=== PATIENT | female | born 1940 | race Caucasian/White ===

== ENCOUNTER → 2016-12-10 | Outpatient (CLI) | payer MEDICARE, OTHER ==
[2016-12-10 12:04] LABS: Basophils # (auto) 0 uL; Basophils % (auto) 0.2 % (0.0-2.0); Eosinophils # (auto) 0.4 uL; Eosinophils % (auto) 4.7 % (0.0-7.0); Hematocrit 47.7 % (36.0-46.0); Hemoglobin 15.5 g/dL (12.2-16.2); Lymphocytes # (auto) 1.1 uL; Lymphocytes % (auto) 13.6 % (10.0-50.0); Mean Corpuscular Hemoglobin 28.1 pg (28.0-32.0); Mean Corpuscular Hgb Conc. 32.5 g/dL (32.0-36.0); Mean Corpuscular Volume 86.3 fL (80.0-100.0); Mean Platelet Volume 7.1 fL (7.4-10.4); Monocytes # (auto) 0.6 uL; Monocytes % (auto) 7.9 % (0.0-12.0); Neutrophils % (auto) 73.6 % (37.0-80.0); Platelet Count (auto) 317 10^3/uL (140-450); Red Cell Distribution Width 14.3 % (11.6-16.0); White Blood Cell 8.2 10^3/uL (4.4-10.8)
[2016-12-10 12:10] LABS: Urine Bilirubin Negative (Negative); Urine Blood Negative /uL (Negative); Urine Color Yellow (Yellow); Urine Glucose Normal (Normal); Urine Ketone Negative (Negative); Urine Nitrite Negative (Negative); Urine Urobilinogen Normal (Negative); Urine pH 6.5 (5.0-8.0)
[2016-12-10 12:37] LABS: Albumin 4.2 g/dL (3.4-5.0); BUN/Creatinine Ratio 16.1; Bilirubin, Direct 0.2 mg/dL (0-0.2); Bilirubin, Total 0.6 mg/dL (0.2-1.0); Calcium 9.9 mg/dL (8.5-10.1); Potassium 4.1 mmol/L (3.5-5.1); Total Protein 7.5 g/dL (6.4-8.2)
== END | disposition home or self-care (01) ==
LOC: LAB 09:41
PROVIDERS: ATTEND Internal Medicine Cardiovascular Disease
DX: I10 Essential (primary) hypertension (principal); E78.00 Pure hypercholesterolemia, unspecified; K74.1 Hepatic sclerosis; E11.9 Type 2 diabetes mellitus without complications; E03.9 Hypothyroidism, unspecified; D64.9 Anemia, unspecified; E55.9 Vitamin D deficiency, unspecified; N39.0 Urinary tract infection, site not specified
CPT/HCPCS: 36415; 80048; 80061; 80076; 81003; 82306; 83036; 84443; 85025

== ENCOUNTER → 2017-03-24 | Outpatient (CLI) | payer MEDICARE | END | disposition home or self-care (01) | LOC: Rad HDHVI 09:30 | PROVIDERS: ATTEND Internal Medicine Cardiovascular Disease | DX: I51.89 Other ill-defined heart diseases (principal); I20.9 Angina pectoris, unspecified; I27.0 Primary pulmonary hypertension | CPT/HCPCS: 93306 ==

== ENCOUNTER → 2017-04-20 | Outpatient (CLI) | payer MEDICARE ==
[2017-04-20 08:40] VITALS: BP 119/60
[2017-04-20 09:15] VITALS: BP 111/58
[2017-04-20 12:16] LABS: Basophils # (auto) 0 uL; Basophils % (auto) 0.6 % (0.0-2.0); CONDITION Y; Eosinophils # (auto) 0.4 uL; Eosinophils % (auto) 6.6 % (0.0-7.0); Hematocrit 44.5 % (36.0-46.0); Hemoglobin 14.9 g/dL (12.2-16.2); Lymphocytes % (auto) 17.1 % (10.0-50.0); Mean Corpuscular Hemoglobin 28.7 pg (28.0-32.0); Mean Corpuscular Hgb Conc. 33.4 g/dL (32.0-36.0); Mean Corpuscular Volume 85.9 fL (80.0-100.0); Mean Platelet Volume 7.4 fL (7.4-10.4); Monocytes # (auto) 0.5 uL; Monocytes % (auto) 8.6 % (0.0-12.0); Neutrophils # (auto) 4.1 uL; Neutrophils % (auto) 67.1 % (37.0-80.0); Platelet Count (auto) 320 10^3/uL (140-450); Red Cell Distribution Width 14.1 % (11.6-16.0); White Blood Cell 6.1 10^3/uL (4.4-10.8)
[2017-04-20 12:25] LABS: INR 0.96 (0.9-1.15); Partial Thromboplastin Time 26.4 sec (22.64-33.71); Prothrombin Time 10.5 sec (9.37-12.3)
[2017-04-20 12:43] LABS: BUN/Creatinine Ratio 23.9; Calcium 10.1 mg/dL (8.5-10.1); Potassium 3.8 mmol/L (3.5-5.1)
== END | disposition home or self-care (01) ==
LOC: Rad HDHVI 08:22
PROVIDERS: ATTEND Internal Medicine Cardiovascular Disease
DX: Z01.812 Encounter for preprocedural laboratory examination (principal); I51.7 Cardiomegaly; I70.0 Atherosclerosis of aorta; R91.8 Other nonspecific abnormal finding of lung field; K44.9 Diaphragmatic hernia without obstruction or gangrene; M85.80 Other specified disorders of bone density and structure, unspecified site; M40.294 Other kyphosis, thoracic region; M48.54XA Collapsed vertebra, not elsewhere classified, thoracic region, initial encounter for fracture; I10 Essential (primary) hypertension; D64.9 Anemia, unspecified; R79.1 Abnormal coagulation profile
CPT/HCPCS: 36415; 71020; 80048; 85025; 85610; 85730; 93005; G0463

== ENCOUNTER 2017-05-11 02:41 | Emergency (ER) | payer MEDICARE ==
[~2017-05-11] VITALS: Ht 157.5 cm; Wt 57.2 kg
[~2017-05-11 02:41] MED LIST: AML5T PO; ATEN-60 PO; FLUT250M2 INH; HYDR12.56 PO; IPRASOL39 NEB; LISI2.5T47 PO; TIOTCAP INH
[2017-05-11 03:13] LABS: Basophils # (auto) 0 uL; Basophils % (auto) 0.4 % (0.0-2.0); CONDITION Y; Eosinophils # (auto) 0.3 uL; Eosinophils % (auto) 2.7 % (0.0-7.0); Hematocrit 45.3 % (36.0-46.0); Hemoglobin 15.2 g/dL (12.2-16.2); Lymphocytes # (auto) 1.7 uL; Lymphocytes % (auto) 17.9 % (10.0-50.0); Mean Corpuscular Hemoglobin 28.7 pg (28.0-32.0); Mean Corpuscular Hgb Conc. 33.5 g/dL (32.0-36.0); Mean Corpuscular Volume 85.8 fL (80.0-100.0); Mean Platelet Volume 6.6 fL (7.4-10.4); Monocytes # (auto) 0.9 uL; Monocytes % (auto) 9.9 % (0.0-12.0); Neutrophils # (auto) 6.4 uL; Neutrophils % (auto) 69.1 % (37.0-80.0); Platelet Count (auto) 411 10^3/uL (140-450); Red Cell Distribution Width 13.6 % (11.6-16.0); White Blood Cell 9.3 10^3/uL (4.4-10.8)
[2017-05-11 03:34] LABS: Albumin 3.7 g/dL (3.4-5.0); BUN/Creatinine Ratio 25.3; Calcium 9.4 mg/dL (8.5-10.1); Magnesium 2.2 mg/dL (1.6-2.6); Potassium 3.6 mmol/L (3.5-5.1)
[2017-05-11 03:39] LABS: Bilirubin, Total 0.6 mg/dL (0.2-1.0); Temperature: 22.4 C (20.0-25.0); Total Protein 7.7 g/dL (6.4-8.2)
[2017-05-11 05:27] VITALS: BP 124/72
== END 2017-05-11 06:50 | disposition home or self-care (01) ==
LOC: ER 02:44
DX: M54.2 Cervicalgia (principal); I25.10 Atherosclerotic heart disease of native coronary artery without angina pectoris; I10 Essential (primary) hypertension; Z95.5 Presence of coronary angioplasty implant and graft; Z88.6 Allergy status to analgesic agent; Z95.1 Presence of aortocoronary bypass graft; Z96.643 Presence of artificial hip joint, bilateral; Z90.49 Acquired absence of other specified parts of digestive tract; Z90.89 Acquired absence of other organs
CPT/HCPCS: 36415; 71010; 80053; 83735; 83880; 84484; 85025; 93005

== ENCOUNTER → 2017-09-16 | Outpatient (CLI) | payer MEDICARE ==
[2017-09-16 16:32] LABS: Calcium 9.4 mg/dL (8.5-10.1); Potassium 4.1 mmol/L (3.5-5.1)
[2017-09-16 16:43] LABS: Basophils # (auto) 0 uL; Basophils % (auto) 0.2 % (0.0-2.0); Eosinophils # (auto) 0 uL; Eosinophils % (auto) 0.2 % (0.0-7.0); Hematocrit 45.7 % (36.0-46.0); Lymphocytes # (auto) 0.5 uL; Lymphocytes % (auto) 8.2 % (10.0-50.0); Mean Corpuscular Hemoglobin 28.6 pg (28.0-32.0); Mean Corpuscular Volume 86.8 fL (80.0-100.0); Mean Platelet Volume 6.9 fL (6.9-10.8); Monocytes % (auto) 14.6 % (0.0-12.0); Neutrophils # (auto) 5.1 uL; Neutrophils % (auto) 76.8 % (37.0-80.0); Nucleated Red Blood Cells % 0.7 %; Platelet Count (auto) 211 10^3/uL (140-450); Red Cell Distribution Width 13.7 % (11.8-14.3); White Blood Cell 6.6 10^3/uL (4.4-10.8)
== END | disposition home or self-care (01) ==
LOC: Rad HDHVI 13:38
PROVIDERS: ATTEND Internal Medicine Cardiovascular Disease
DX: I70.0 Atherosclerosis of aorta (principal); M85.80 Other specified disorders of bone density and structure, unspecified site; K44.9 Diaphragmatic hernia without obstruction or gangrene; M40.299 Other kyphosis, site unspecified; D64.9 Anemia, unspecified; I10 Essential (primary) hypertension
CPT/HCPCS: 36415; 71020; 80048; 85025

== ENCOUNTER → 2017-10-12 | Outpatient (CLI) | payer MEDICARE | END | disposition home or self-care (01) | LOC: LAB 11:45 | PROVIDERS: ATTEND Internal Medicine Cardiovascular Disease | DX: E03.9 Hypothyroidism, unspecified (principal) | CPT/HCPCS: 36415; 84443 ==

== ENCOUNTER → 2017-10-28 | Outpatient (CLI) | payer MEDICARE | END | disposition home or self-care (01) | LOC: Rad HDHVI 15:07 | PROVIDERS: ATTEND Internal Medicine Cardiovascular Disease | DX: I08.1 Rheumatic disorders of both mitral and tricuspid valves (principal); J44.9 Chronic obstructive pulmonary disease, unspecified | CPT/HCPCS: 93306 ==

== ENCOUNTER → 2017-11-11 | Outpatient (CLI) | payer MEDICARE ==
[~2017-11-11] VITALS: Ht 157.5 cm; Wt 55.8 kg
[~2017-11-11] MED LIST changes: +ADENOSINE 47 MG in GIVE UN-DILUTED 0 ML IV ONE; +ADENOSINE 90 MG/30 ML INJ IV ONE
== END | disposition home or self-care (01) ==
LOC: Rad HDHVI 10:09
PROVIDERS: ATTEND Internal Medicine Cardiovascular Disease
DX: J44.9 Chronic obstructive pulmonary disease, unspecified (principal); I10 Essential (primary) hypertension; I25.119 Atherosclerotic heart disease of native coronary artery with unspecified angina pectoris
CPT/HCPCS: 78452; 93005; 96374; 96375; A9500; J0153

== ENCOUNTER 2017-12-04 16:40 | Inpatient (IN) | payer MEDICARE ==
[~2017-12-04] VITALS: Ht 157.5 cm; Wt 57.2 kg
[~2017-12-04 16:40] MED LIST changes: -ADENOSINE 47 MG in GIVE UN-DILUTED 0 ML IV ONE; -ADENOSINE 90 MG/30 ML INJ IV ONE
[2017-12-04 17:32] LABS: Basophils # (auto) 0 uL; Basophils % (auto) 0.2 % (0.0-2.0); Eosinophils # (auto) 0 uL; Eosinophils % (auto) 0.4 % (0.0-7.0); Hematocrit 48.7 % (36.0-46.0); Hemoglobin 15.6 g/dL (12.2-16.2); Lymphocytes # (auto) 0.7 uL; Lymphocytes % (auto) 6.2 % (10.0-50.0); Mean Corpuscular Hemoglobin 28.5 pg (28.0-32.0); Mean Corpuscular Volume 89.1 fL (80.0-100.0); Monocytes # (auto) 0.8 uL; Monocytes % (auto) 6.6 % (0.0-12.0); Neutrophils # (auto) 10.3 uL; Neutrophils % (auto) 86.6 % (37.0-80.0); Nucleated Red Blood Cells % 0.1 %; Platelet Count (auto) 250 10^3/uL (140-450); Red Blood Cells 5.47 10^6/uL (4.0-5.20); Red Cell Distribution Width 14.5 % (11.8-14.3); White Blood Cell 11.9 10^3/uL (4.4-10.8)
[2017-12-04 17:39] LABS: Alanine Aminotransferase 35 U/L (13-56); Albumin 3.8 g/dL (3.4-5.0); Anion Gap 8 (5-15); Aspartate Aminotransferase 28 U/L (15-37); Blood Urea Nitrogen 22 mg/dL (7-18); Calcium 9.5 mg/dL (8.5-10.1); Carbon Dioxide 24 mmol/L (21-32); Chloride 103 mmol/L (98-107); GFR African American 81 mL/min; GFR Non-African American 67 mL/min; Glucose 110 mg/dL (74-106); Potassium 3.9 mmol/L (3.5-5.1); Sodium 135 mmol/L (136-145)
[2017-12-04 17:41] LABS: Alkaline Phosphatase 49 U/L (45-117); Bilirubin, Total 0.6 mg/dL (0.2-1.0); Total Protein 7.4 g/dL (6.4-8.2)
[2017-12-05] VITALS (8 sets, daily range): BP systolic 100–115; BP diastolic 50–77
[2017-12-05] MEDS ORDERED: MORPHINE SULFATE 4 MG/ML SYR/VIAL IV ONE (01:00)
[2017-12-05] MEDS ORDERED: ONDANSETRON HCL 4 MG/2 ML VIAL IV ONE (01:00)
[2017-12-05] MEDS ORDERED: ASPirin 81 mg TAB PO ONE (01:00)
[2017-12-05] MEDS ORDERED: ONDANSETRON HCL 4 MG/2 ML VIAL IV PRN (02:45)
[2017-12-05] MEDS ORDERED: MORPHINE SULFATE 4 MG/ML SYR/VIAL IV PRN (02:45)
[2017-12-05] MEDS ORDERED: ACETAMINOPHEN 325 MG TAB PO PRN (02:45)
[2017-12-05] MEDS ORDERED: NITROGLYCERIN 0.4 MG SL TAB SL PRN (02:45)
[2017-12-05] MEDS ORDERED: HYDROcodone-ACET 5/325MG TAB PO PRN (02:45)
[2017-12-05] MEDS ORDERED: TEMAZEPAM 15 MG CAP PO PRN (02:45)
[2017-12-05] MEDS: ASPirin 81 mg TAB PO SCH (10:15)
[2017-12-05] MEDS: amLODIPine BESYLATE 5 MG TAB PO SCH (10:15)
[2017-12-05] MEDS: FAMOTIDINE 20 MG TAB PO SCH ×2 (10:17→22:04)
[2017-12-05] MEDS: LISINOPRIL 5 MG TAB PO SCH (10:17)
[2017-12-05] MEDS: HCTZ 25 MG TAB PO SCH (10:18)
[2017-12-05] MEDS: ENOXAPARIN SOD 40 MG/0.4 ML SYRINGE SC SCH (10:19)
[2017-12-05] MEDS: ALBUTEROL SULF 2.5 MG/0.5ML(0.5%) NEB SOLN NEB PRN (19:47)
[2017-12-06] VITALS (7 sets, daily range): BP systolic 96–111; BP diastolic 59–69
[2017-12-06 05:51] LABS: Basophils # (auto) 0 uL; Basophils % (auto) 0.3 % (0.0-2.0); Eosinophils # (auto) 0.1 uL; Eosinophils % (auto) 0.9 % (0.0-7.0); Hematocrit 44.3 % (36.0-46.0); Hemoglobin 14.6 g/dL (12.2-16.2); Lymphocytes # (auto) 0.8 uL; Lymphocytes % (auto) 10.5 % (10.0-50.0); Mean Corpuscular Hemoglobin 28.7 pg (28.0-32.0); Mean Corpuscular Hgb Conc. 33.1 g/dL (32.0-36.0); Mean Corpuscular Volume 86.8 fL (80.0-100.0); Monocytes # (auto) 0.6 uL; Monocytes % (auto) 7.5 % (0.0-12.0); Neutrophils % (auto) 80.8 % (37.0-80.0); Nucleated Red Blood Cells % 0.1 %; Platelet Count (auto) 256 10^3/uL (140-450); White Blood Cell 7.4 10^3/uL (4.4-10.8)
[2017-12-06] MEDS ORDERED: IOHEXOL 350 MG/ML 100ML IJ ONE (05:55)
[2017-12-06 06:06] LABS: Albumin 3.3 g/dL (3.4-5.0); BUN/Creatinine Ratio 28.2; Bilirubin, Total 0.6 mg/dL (0.2-1.0); Calcium 9.2 mg/dL (8.5-10.1); Potassium 4.2 mmol/L (3.5-5.1); Total Protein 6.5 g/dL (6.4-8.2)
[2017-12-06] MEDS: ENOXAPARIN SOD 40 MG/0.4 ML SYRINGE SC SCH (11:01)
[2017-12-06] MEDS: LISINOPRIL 5 MG TAB PO SCH (11:02)
[2017-12-06] MEDS: amLODIPine BESYLATE 5 MG TAB PO SCH (11:03)
[2017-12-06] MEDS: FAMOTIDINE 20 MG TAB PO SCH ×2 (11:03→21:58)
[2017-12-06] MEDS: ASPirin 81 mg TAB PO SCH (11:04)
[2017-12-06] MEDS: HCTZ 25 MG TAB PO SCH (11:04)
[2017-12-06] MEDS: ALBUTEROL SULF 2.5 MG/0.5ML(0.5%) NEB SOLN NEB PRN (20:28)
[2017-12-07 05:00] VITALS: BP 112/66
[2017-12-07] MEDS: FAMOTIDINE 20 MG TAB PO SCH (08:49)
[2017-12-07] MEDS: HCTZ 25 MG TAB PO SCH (08:49)
[2017-12-07] MEDS: ENOXAPARIN SOD 40 MG/0.4 ML SYRINGE SC SCH (08:49)
[2017-12-07] MEDS: ASPirin 81 mg TAB PO SCH (08:49)
[2017-12-07 09:00] VITALS: BP 115/65
[2017-12-07] MEDS: LISINOPRIL 5 MG TAB PO SCH (10:00)
[2017-12-07] MEDS: amLODIPine BESYLATE 5 MG TAB PO SCH (10:00)
[2017-12-07 12:43] VITALS: BP 112/65
[2017-12-07 13:00] VITALS: BP 101/61
[2017-12-07] MEDS: ALBUTEROL SULF 2.5 MG/0.5ML(0.5%) NEB SOLN NEB PRN (14:24)
== END 2017-12-07 15:50 | disposition home or self-care (01) | DRG 206 ==
LOC: ER 16:54 → TELE 16:55 → TELE-WESTW 12-05 04:30
PROVIDERS: ADMIT Nurse Practitioner; ATTEND Family Medicine
DX: M94.0 Chondrocostal junction syndrome [Tietze] (principal); I11.0 Hypertensive heart disease with heart failure; J44.9 Chronic obstructive pulmonary disease, unspecified; I50.9 Heart failure, unspecified; I25.10 Atherosclerotic heart disease of native coronary artery without angina pectoris; K44.9 Diaphragmatic hernia without obstruction or gangrene; I08.0 Rheumatic disorders of both mitral and aortic valves; Z82.49 Family history of ischemic heart disease and other diseases of the circulatory system; Z95.1 Presence of aortocoronary bypass graft; Z95.5 Presence of coronary angioplasty implant and graft; Z79.899 Other long term (current) drug therapy; Z88.8 Allergy status to other drugs, medicaments and biological substances; Z90.49 Acquired absence of other specified parts of digestive tract
CPT/HCPCS: 36415; 71046; 71275; 80053; 84484; 85025; 85379; 93005; 94640; 94761; 96374; 96375; J2405

== ENCOUNTER → 2017-12-09 | Outpatient (CLI) | payer MEDICARE ==
[~2017-12-09] VITALS: Ht 1 cm; Wt 0.5 kg
[~2017-12-09] MED LIST changes: +KETOROLAC TROMETH 60MG/2ML VIAL IM ONE
[2017-12-09 15:40] VITALS: BP 152/65
[2017-12-09 16:20] VITALS: BP 111/59
== END | disposition home or self-care (01) ==
LOC: CHF HDHVI 15:40
PROVIDERS: ATTEND Internal Medicine Cardiovascular Disease
DX: M54.5 Low back pain (principal); R10.30 Lower abdominal pain, unspecified
CPT/HCPCS: 96372; G0463; J1885

== ENCOUNTER → 2017-12-10 | Outpatient (CLI) | payer MEDICARE ==
[~2017-12-10] MED LIST changes: -KETOROLAC TROMETH 60MG/2ML VIAL IM ONE; +READI-CAT 2 (BARIUM SULF)(VANILLA SMOOTHIE) 450ML ONE
== END | disposition home or self-care (01) ==
LOC: Rad HDHVI 11:53
PROVIDERS: ATTEND Internal Medicine Cardiovascular Disease
DX: K44.9 Diaphragmatic hernia without obstruction or gangrene (principal); I70.0 Atherosclerosis of aorta; M54.5 Low back pain; M48.061 Spinal stenosis, lumbar region without neurogenic claudication; Z90.49 Acquired absence of other specified parts of digestive tract
CPT/HCPCS: 72131; 74176

== ENCOUNTER → 2017-12-20 | Outpatient (CLI) | payer MEDICARE ==
[~2017-12-20] MED LIST changes: +IOHEXOL 350 MG/ML 100ML IJ ONE
== END | disposition home or self-care (01) ==
LOC: Rad HDHVI 09:05
PROVIDERS: ATTEND Internal Medicine Cardiovascular Disease
DX: K44.9 Diaphragmatic hernia without obstruction or gangrene (principal); K42.9 Umbilical hernia without obstruction or gangrene; I70.0 Atherosclerosis of aorta; Z90.49 Acquired absence of other specified parts of digestive tract
CPT/HCPCS: 74176

== ENCOUNTER → 2017-12-28 | Outpatient (CLI) | payer MEDICARE ==
[~2017-12-28] MED LIST changes: -IOHEXOL 350 MG/ML 100ML IJ ONE; -READI-CAT 2 (BARIUM SULF)(VANILLA SMOOTHIE) 450ML ONE
== END | disposition home or self-care (01) ==
LOC: Rad HDHVI 12:58
PROVIDERS: ATTEND Internal Medicine
DX: J44.9 Chronic obstructive pulmonary disease, unspecified (principal); R60.9 Edema, unspecified; I10 Essential (primary) hypertension; E78.5 Hyperlipidemia, unspecified; E11.9 Type 2 diabetes mellitus without complications; Z79.899 Other long term (current) drug therapy
CPT/HCPCS: 93971

== ENCOUNTER → 2018-06-03 | Outpatient (CLI) | payer MEDICARE | END | disposition home or self-care (01) | LOC: Rad HDHVI 14:01 | PROVIDERS: ATTEND Internal Medicine | DX: I08.2 Rheumatic disorders of both aortic and tricuspid valves (principal); I10 Essential (primary) hypertension; J44.9 Chronic obstructive pulmonary disease, unspecified; Z98.61 Coronary angioplasty status; Z87.891 Personal history of nicotine dependence | CPT/HCPCS: 93306 ==

== ENCOUNTER → 2018-06-15 | Outpatient (CLI) | payer MEDICARE ==
[~2018-06-15] VITALS: Ht 30.5 cm; Wt 0.5 kg
[~2018-06-15] MED LIST changes: +ADENOSINE 48 MG in GIVE UN-DILUTED 0 ML IV ONE; +ADENOSINE 90 MG/30 ML INJ IV ONE
== END | disposition home or self-care (01) ==
LOC: Rad HDHVI 13:55
PROVIDERS: ATTEND Internal Medicine
DX: I10 Essential (primary) hypertension (principal); I20.9 Angina pectoris, unspecified; E78.5 Hyperlipidemia, unspecified; R07.89 Other chest pain; J44.9 Chronic obstructive pulmonary disease, unspecified; Z95.5 Presence of coronary angioplasty implant and graft; Z88.6 Allergy status to analgesic agent
CPT/HCPCS: 78452; 93005; 96374; 96375; A9500; J0153

== ENCOUNTER → 2018-07-11 | Outpatient (CLI) | payer MEDICARE ==
[~2018-07-11] MED LIST changes: -ADENOSINE 48 MG in GIVE UN-DILUTED 0 ML IV ONE; -ADENOSINE 90 MG/30 ML INJ IV ONE; +CHOL100055 PO; +CLOP75TA41 PO; +LEVO50TA7 PO; +LUBI24CA6 PO
[2018-07-11 12:15] VITALS: BP 144/69
[2018-07-11 12:48] VITALS: BP 137/80
[2018-07-11 16:21] LABS: Basophils # (auto) 0 uL; Basophils % (auto) 0.5 % (0.0-2.0); Eosinophils # (auto) 0.4 uL; Eosinophils % (auto) 4.2 % (0.0-7.0); Hematocrit 49.3 % (36.0-46.0); Hemoglobin 16.5 g/dL (12.2-16.2); Lymphocytes # (auto) 1.4 uL; Lymphocytes % (auto) 16.8 % (10.0-50.0); Mean Corpuscular Hemoglobin 28.8 pg (28.0-32.0); Mean Corpuscular Hgb Conc. 33.4 g/dL (32.0-36.0); Mean Corpuscular Volume 86.3 fL (80.0-100.0); Monocytes # (auto) 0.7 uL; Monocytes % (auto) 8.3 % (0.0-12.0); Neutrophils # (auto) 5.8 uL; Neutrophils % (auto) 70.2 % (37.0-80.0); Nucleated Red Blood Cells % 0.4 %; Platelet Count (auto) 259 10^3/uL (140-450); Red Blood Cells 5.72 10^6/uL (4.0-5.20); Red Cell Distribution Width 14.4 % (11.8-14.3); White Blood Cell 8.3 10^3/uL (4.4-10.8)
[2018-07-11 16:31] LABS: BUN/Creatinine Ratio 21.7; Potassium 3.7 mmol/L (3.5-5.1)
[2018-07-11 16:33] LABS: INR 0.95 (0.9-1.15); Partial Thromboplastin Time 27.7 sec (23.78-33.04); Prothrombin Time 10.2 sec (9.27-12.13)
== END | disposition home or self-care (01) ==
LOC: CHF HDHVI 12:06
PROVIDERS: ATTEND Internal Medicine
DX: Z01.818 Encounter for other preprocedural examination (principal); D64.9 Anemia, unspecified; R79.1 Abnormal coagulation profile; I10 Essential (primary) hypertension; R94.31 Abnormal electrocardiogram [ECG] [EKG]
CPT/HCPCS: 36415; 80048; 85025; 85610; 85730; 93005; G0463

== ENCOUNTER 2018-07-13 06:43 | Day surgery (SDC) | payer MEDICARE ==
[~2018-07-13] VITALS: Ht 157.5 cm; Wt 57.6 kg
[~2018-07-13 06:43] MED LIST changes: -AML5T PO; -IPRASOL39 NEB; -LISI2.5T47 PO
[2018-07-13] MEDS ORDERED: IOHEXOL 350 MG/ML 100ML IJ ONE (07:25)
[2018-07-13] MEDS ORDERED: LIDOCAINE 2%HCL (LOCAL ANESTH.) INJ 20ML MDV ONE (07:26)
[2018-07-13] MEDS ORDERED: EPINEPHrine HCL 1 MG/10 ML SYRG ONE (08:01)
[2018-07-13] MEDS ORDERED: MIDAZOLAM HCL 1MG/1ML-2 ML VIAL ONE (08:01)
[2018-07-13] MEDS ORDERED: ATROPINE SULF 1 MG/10ml SYR ONE (08:01)
[2018-07-13] MEDS ORDERED: SODIUM CHL 0.9% 0 ML ONE (08:01)
[2018-07-13] MEDS ORDERED: fentaNYL CITRATE 100 MCG/2 ML VL ONE (08:01)
[2018-07-13] MEDS ORDERED: ANGIOMAX 250 MG VIAL IV ONE (08:01)
[2018-07-13] MEDS ORDERED: ACETAMINOPHEN 500 MG TAB PO ONE ×2 (09:55→10:00)
== END 2018-07-13 11:30 | disposition home or self-care (01) ==
LOC: CATH 06:43
PROVIDERS: ATTEND Internal Medicine
DX: I25.119 Atherosclerotic heart disease of native coronary artery with unspecified angina pectoris (principal); R94.39 Abnormal result of other cardiovascular function study; I27.20 Pulmonary hypertension, unspecified; Z88.6 Allergy status to analgesic agent; Z88.8 Allergy status to other drugs, medicaments and biological substances; Q24.9 Congenital malformation of heart, unspecified; J44.9 Chronic obstructive pulmonary disease, unspecified; Z87.891 Personal history of nicotine dependence; Z82.49 Family history of ischemic heart disease and other diseases of the circulatory system; Z84.89 Family history of other specified conditions; I10 Essential (primary) hypertension; Z95.5 Presence of coronary angioplasty implant and graft; Z79.899 Other long term (current) drug therapy; E07.9 Disorder of thyroid, unspecified
CPT/HCPCS: 36600; 82805; 93460; 99152; 99153; A6257; C1751; J2250

== ENCOUNTER → 2018-08-02 | Outpatient (CLI) | payer MEDICARE ==
[2018-08-02 15:10] VITALS: BP 140/84
[2018-08-02 16:00] VITALS: BP 152/81
== END | disposition home or self-care (01) ==
LOC: CHF HDHVI 15:12
PROVIDERS: ATTEND Internal Medicine
DX: I27.21 Secondary pulmonary arterial hypertension (principal); I10 Essential (primary) hypertension; J44.9 Chronic obstructive pulmonary disease, unspecified; E07.9 Disorder of thyroid, unspecified
CPT/HCPCS: 93701; 94618; G0463

== ENCOUNTER → 2018-09-16 | Outpatient (CLI) | payer MEDICARE ==
[2018-09-16 09:08] VITALS: BP 132/66
[2018-09-16 10:20] VITALS: BP 143/73
== END | disposition home or self-care (01) ==
LOC: CHF HDHVI 09:03
PROVIDERS: ATTEND Internal Medicine Cardiovascular Disease
DX: I27.20 Pulmonary hypertension, unspecified (principal); R06.00 Dyspnea, unspecified
CPT/HCPCS: 93701; 94618; G0463

== ENCOUNTER → 2018-09-22 | Outpatient (CLI) | payer MEDICARE ==
[2018-09-22 09:55] VITALS: BP 152/72
[2018-09-22 11:15] VITALS: BP 137/65
[2018-09-22 12:02] LABS: Basophils # (auto) 0 uL; Basophils % (auto) 0.3 % (0.0-2.0); Eosinophils # (auto) 0.2 uL; Eosinophils % (auto) 3.3 % (0.0-7.0); Hematocrit 50.5 % (36.0-46.0); Hemoglobin 16.4 g/dL (12.2-16.2); Lymphocytes # (auto) 1.1 uL; Lymphocytes % (auto) 15.3 % (10.0-50.0); Mean Corpuscular Hemoglobin 28.6 pg (28.0-32.0); Mean Corpuscular Hgb Conc. 32.5 g/dL (32.0-36.0); Monocytes # (auto) 0.6 uL; Monocytes % (auto) 7.5 % (0.0-12.0); Neutrophils # (auto) 5.4 uL; Neutrophils % (auto) 73.6 % (37.0-80.0); Nucleated Red Blood Cells % 0.1 %; Platelet Count (auto) 241 10^3/uL (140-450); Red Blood Cells 5.74 10^6/uL (4.0-5.20); Red Cell Distribution Width 14.4 % (11.8-14.3); White Blood Cell 7.3 10^3/uL (4.4-10.8)
[2018-09-22 12:11] LABS: Albumin 3.9 g/dL (3.4-5.0); Calcium 9.5 mg/dL (8.5-10.1); Magnesium 2.3 mg/dL (1.6-2.6); Potassium 3.6 mmol/L (3.5-5.1)
[2018-09-22 12:16] LABS: Bilirubin, Total 0.5 mg/dL (0.2-1.0); Total Protein 7.3 g/dL (6.4-8.2)
== END | disposition home or self-care (01) ==
LOC: CHF HDHVI 09:11
PROVIDERS: ATTEND Internal Medicine Cardiovascular Disease
DX: I11.0 Hypertensive heart disease with heart failure (principal); I50.9 Heart failure, unspecified; E55.9 Vitamin D deficiency, unspecified; D64.9 Anemia, unspecified; I27.21 Secondary pulmonary arterial hypertension; R06.00 Dyspnea, unspecified
CPT/HCPCS: 36415; 80053; 82306; 83735; 85025; G0463

== ENCOUNTER → 2018-10-06 | Outpatient (CLI) | payer MEDICARE ==
[2018-10-06 09:15] VITALS: BP 139/65
[2018-10-06 09:45] VITALS: BP 147/60
--- NOTE | 2018-10-06 10:00 | NUR ---
IN TO CLINIC FOR PAH FOLLOWUP. NO DISTRESS OR DISCOMFORT NOTED. CARDIODYNAMICS DONE AND REVIEWED BY DAVID GARIBAY. DISCREPANCY FROM LAST NOTED CARDIODYNAMICS. UPON FURTHER DISCUSSION PT REPORTS FATIGUE AND NOT FEELING WELL X MULTIPLE DAYS. PLAN TO REEVALUATE CARDIODYNAMICS IN 1 WEEK. 6MWT DONE AND REVIEWED. PT TO START ON ARGINEXT SUPPLEMENT ORALLY BID. Discharge Instructions See e-MAR for any mediations given with this visit. Patient education given on disease process. Patient verbalized understanding. Previous labs reviewed. Patient discharged in stable condition with after care instructions and follow up appointment.
[2018-10-06 13:34] LABS: Calcium 9.5 mg/dL (8.5-10.1)
== END | disposition home or self-care (01) ==
LOC: CHF HDHVI 08:39
PROVIDERS: ATTEND Internal Medicine Cardiovascular Disease
DX: I11.0 Hypertensive heart disease with heart failure (principal); I50.9 Heart failure, unspecified
CPT/HCPCS: 36415; 80048; 93701; 94618; G0463

== ENCOUNTER → 2018-10-13 | Outpatient (CLI) | payer MEDICARE ==
[2018-10-13 08:40] VITALS: BP 120/67
--- NOTE | 2018-10-13 08:40 | NUR ---
CHF PT TO CHF CLINIC FOR PAH REEVAL C/O NO CHANGE IN SYMPTOMS SINCE START OF SILDENAFIL IN JULY.
[2018-10-13 10:00] VITALS: BP 123/70
--- NOTE | 2018-10-13 10:00 | NUR ---
CHF MEDICATION MANAGEMENT INSTRUCTION. PT WASN'T TAKING SILDENAFIL MEDICATIONS PRESCRIBED. DR. CORDERO ADDED OPSUMIT 10MG 1 PO QD. Discharge Instructions See e-MAR for any mediations given with this visit. Patient education given on disease process. Patient verbalized understanding. Previous labs reviewed. Patient discharged in stable condition with after care instructions and follow up appointment. PT TO FOLLOW UP IN CLINIC SOON SHE RECEIVES NEW MEDICATION.
== END | disposition home or self-care (01) ==
LOC: CHF HDHVI 08:44
PROVIDERS: ATTEND Internal Medicine Cardiovascular Disease
DX: I27.20 Pulmonary hypertension, unspecified (principal)
CPT/HCPCS: 93701; G0463

== ENCOUNTER → 2018-11-03 | Outpatient (CLI) | payer MEDICARE ==
[2018-11-03 10:46] VITALS: BP 138/69
--- NOTE | 2018-11-03 10:46 | NUR ---
CHF PT TO CHF CLINIC C/O SOB, PRODUCTIVE COUGH ON ANTIBIOTIC AND NEW FACE RASH
[2018-11-03 11:50] VITALS: BP 138/69
--- NOTE | 2018-11-03 11:50 | NUR ---
CHF Discharge Instructions See e-MAR for any mediations given with this visit. Patient education given on disease process. Patient verbalized understanding. Previous labs reviewed. Patient discharged in stable condition with after care instructions and follow up appointment. D/C PT TO FOLLOW UP WITH DR. CERRATO FOR SKIN REACTION POSSIBLY TO MEDICATION.
== END | disposition home or self-care (01) ==
LOC: CHF HDHVI 10:36
PROVIDERS: ATTEND Internal Medicine Cardiovascular Disease
DX: J44.9 Chronic obstructive pulmonary disease, unspecified (principal); I27.20 Pulmonary hypertension, unspecified
CPT/HCPCS: G0463

== ENCOUNTER → 2018-11-04 | Outpatient (CLI) | payer MEDICARE ==
[2018-11-04 11:59] LABS: Basophils # (auto) 0 uL; Basophils % (auto) 0.5 % (0.0-2.0); Eosinophils # (auto) 0.6 uL; Eosinophils % (auto) 7.6 % (0.0-7.0); Hematocrit 51.6 % (36.0-46.0); Hemoglobin 17.1 g/dL (12.2-16.2); Lymphocytes # (auto) 1.5 uL; Lymphocytes % (auto) 18.8 % (10.0-50.0); Mean Corpuscular Hgb Conc. 33.2 g/dL (32.0-36.0); Mean Corpuscular Volume 87.4 fL (80.0-100.0); Monocytes # (auto) 0.7 uL; Monocytes % (auto) 8.2 % (0.0-12.0); Neutrophils # (auto) 5.2 uL; Neutrophils % (auto) 64.9 % (37.0-80.0); Nucleated Red Blood Cells % 0.3 %; Platelet Count (auto) 251 10^3/uL (140-450)
[2018-11-04 12:10] LABS: Potassium 3.8 mmol/L (3.5-5.1)
[2018-11-04 12:15] LABS: Albumin 4.2 g/dL (3.4-5.0); BUN/Creatinine Ratio 23.2; Bilirubin, Total 0.9 mg/dL (0.2-1.0); Calcium 10.1 mg/dL (8.5-10.1); Total Protein 7.8 g/dL (6.4-8.2)
== END | disposition home or self-care (01) ==
LOC: Rad HDHVI 09:54
PROVIDERS: ATTEND Internal Medicine Cardiovascular Disease
DX: K44.9 Diaphragmatic hernia without obstruction or gangrene (principal); D64.9 Anemia, unspecified; I10 Essential (primary) hypertension; M05.9 Rheumatoid arthritis with rheumatoid factor, unspecified; R70.0 Elevated erythrocyte sedimentation rate; M40.294 Other kyphosis, thoracic region; R05 Cough
CPT/HCPCS: 36415; 71046; 80053; 85025; 86038; 86431; 87070; 87205

== ENCOUNTER → 2018-11-10 | Outpatient (CLI) | payer MEDICARE ==
[2018-11-10 11:00] VITALS: BP 108/62
[2018-11-10 11:06] VITALS: BP 152/88
--- NOTE | 2018-11-10 11:06 | NUR ---
IN TO CLINIC FOR NEW MEDICATION REVIEW OF OPSUMMIT 10 MG PO DAILY. REVIEWED HANDOUT AND POSSIBLE SIDE EFFECTS. USED VERBAL AND WRITTEN TEACHING METHODS. ADDITIONAL QUESTIONS DENIED. PT TOOK FIRST DOSE NOW. CARDIODYNAMICS DONE AND REVIEWED. Discharge Instructions See e-MAR for any mediations given with this visit. Patient education given on disease process. Patient verbalized understanding. Previous labs reviewed. Patient discharged in stable condition with after care instructions and follow up appointment FOR 11/17/18 AT 1100
== END | disposition home or self-care (01) ==
LOC: CHF HDHVI 10:13
PROVIDERS: ATTEND Internal Medicine
DX: I27.20 Pulmonary hypertension, unspecified (principal)
CPT/HCPCS: 93701; G0463

== ENCOUNTER → 2018-11-11 | Outpatient (CLI) | payer MEDICARE | END | disposition home or self-care (01) | LOC: LAB 12:40 | PROVIDERS: ATTEND Internal Medicine Cardiovascular Disease | DX: R05 Cough (principal) | CPT/HCPCS: 87070; 87205 ==

== ENCOUNTER → 2018-11-28 | Outpatient (CLI) | payer MEDICARE ==
[2018-11-28 12:00] VITALS: BP 139/67
[2018-11-28 13:03] LABS: Basophils # (auto) 0 uL; Basophils % (auto) 0.6 % (0.0-2.0); Eosinophils # (auto) 0.4 uL; Eosinophils % (auto) 4.9 % (0.0-7.0); Hematocrit 48.9 % (36.0-46.0); Hemoglobin 16.2 g/dL (12.2-16.2); Lymphocytes # (auto) 1.5 uL; Lymphocytes % (auto) 20.6 % (10.0-50.0); Mean Corpuscular Hemoglobin 28.9 pg (28.0-32.0); Mean Corpuscular Hgb Conc. 33.1 g/dL (32.0-36.0); Mean Corpuscular Volume 87.2 fL (80.0-100.0); Monocytes # (auto) 0.6 uL; Monocytes % (auto) 8.1 % (0.0-12.0); Neutrophils # (auto) 4.7 uL; Neutrophils % (auto) 65.8 % (37.0-80.0); Nucleated Red Blood Cells % 0.1 %; Platelet Count (auto) 244 10^3/uL (140-450); Red Blood Cells 5.61 10^6/uL (4.0-5.20); Red Cell Distribution Width 14.3 % (11.8-14.3); White Blood Cell 7.2 10^3/uL (4.4-10.8)
[2018-11-28 13:22] LABS: Albumin 3.6 g/dL (3.4-5.0); Calcium 9.4 mg/dL (8.5-10.1)
[2018-11-28 13:25] LABS: Bilirubin, Total 0.9 mg/dL (0.2-1.0); Total Protein 7.4 g/dL (6.4-8.2)
[2018-11-28 14:51] LABS: Potassium 5.7 mmol/L (3.5-5.1)
[2018-11-28 15:00] VITALS: BP 139/67
--- NOTE | 2018-11-28 15:00 | NUR ---
IN TO CLINIC WITH REPORT OF NOT FEELING WELL AND ALLERGIC REACTION TO NEW MEDICATION OPSUMMIT. EYES REDDENED BILATERALLY AND CHEEKS AND FACE REDDENED ALSO. Clinic Provider Clinic Provider into see pt with new orders received and carried out. LABS DRAWN AND SENT. WAITED ON RESULTS AND SPOKE TO LAB AND SPECIMEN HEMOLYZED. LABS REDRAWN. FOLLOWUP WITH PATIENT ON Wednesday12/02/18 FOR STATUS CHECK. RX FOR CORTICOSPORIN 1 DROP EVERY 8 HOURS X 5 DAYS CALLED IN TO [facility] [place] [facility]. NO MEDICATION DURING THIS VISIT. OBSERVATION AND RX PHONED IN. Discharge Instructions See e-MAR for any mediations given with this visit. Patient education given on disease process. Patient verbalized understanding. Previous labs reviewed. Patient discharged in stable condition with after care instructions
== END | disposition home or self-care (01) ==
LOC: CHF HDHVI 12:00
PROVIDERS: ATTEND Internal Medicine Cardiovascular Disease
DX: E87.5 Hyperkalemia (principal); D64.9 Anemia, unspecified; E83.40 Disorders of magnesium metabolism, unspecified; I11.0 Hypertensive heart disease with heart failure; I50.9 Heart failure, unspecified
CPT/HCPCS: 36415; 80053; 83735; 84132; 85025; G0463

== ENCOUNTER → 2018-12-02 | Outpatient (CLI) | payer MEDICARE ==
[2018-12-02 11:20] VITALS: BP 115/63
[2018-12-02 11:50] VITALS: BP 123/54
--- NOTE | 2018-12-02 11:50 | NUR ---
CHF CLINIC Discharge Instructions See e-MAR for any mediations given with this visit. Patient education given on disease process. Patient verbalized understanding. Previous labs reviewed. Patient discharged in stable condition with after care instructions and follow up appointment. NOTE LABS DRAWN TO RECHECK ABNORMAL VALUES FROM PREVIOUS LAB DRAW, K+ LEVEL WITHIN NORMAL LIMITS.
== END | disposition home or self-care (01) ==
LOC: CHF HDHVI 11:21
PROVIDERS: ATTEND Internal Medicine Cardiovascular Disease
DX: E87.5 Hyperkalemia (principal); J44.9 Chronic obstructive pulmonary disease, unspecified; I11.0 Hypertensive heart disease with heart failure; I50.9 Heart failure, unspecified
CPT/HCPCS: 36415; 84132; G0463

== ENCOUNTER → 2019-01-04 | Outpatient (CLI) | payer MEDICARE ==
[2019-01-04 09:15] VITALS: BP 144/72
[2019-01-04 10:20] VITALS: BP 118/78
--- NOTE | 2019-01-04 10:20 | NUR ---
AFFECT CHEERFUL AND WITHOUT DISTRESS. VS WNL. CLINIC PROVIDER CONSULTED. 6MWT DONE AND CARDIODYNAMICS DONE BY MARTHA BURK AND REVIEWED BY SEEMA GARIBAY. MEDICATION REVIEW COMPLETED. STATUS REVIEW COMPLETED. CLINIC PROVIDER CONSULTED AND ORDERS RECIEVED. ADD ALDACTONE 25 MG PO EVERY OTHER DAY AND REEVALUATE. Discharge Instructions See e-MAR for any mediations given with this visit. Patient education given on disease process. Patient verbalized understanding. Previous labs reviewed. Patient discharged in stable condition with after care instructions and follow up appointment FOR 01/26/19 AT 1300 RX ESCRIPTED TO [facility] IN [place] ALDACTONE 25MG PO EVERY OTHER DAY.
[2019-01-04 12:25] LABS: Basophils # (auto) 0 uL; Basophils % (auto) 0.5 % (0.0-2.0); Eosinophils # (auto) 0.2 uL; Eosinophils % (auto) 3.8 % (0.0-7.0); Hematocrit 48.7 % (36.0-46.0); Lymphocytes # (auto) 0.9 uL; Mean Corpuscular Hemoglobin 28.9 pg (28.0-32.0); Mean Corpuscular Hgb Conc. 32.9 g/dL (32.0-36.0); Mean Corpuscular Volume 87.7 fL (80.0-100.0); Monocytes # (auto) 0.5 uL; Monocytes % (auto) 8.6 % (0.0-12.0); Neutrophils # (auto) 4.7 uL; Neutrophils % (auto) 73.1 % (37.0-80.0); Nucleated Red Blood Cells % 0.6 %; Platelet Count (auto) 244 10^3/uL (140-450); Red Blood Cells 5.55 10^6/uL (4.0-5.20); Red Cell Distribution Width 14.2 % (11.8-14.3); White Blood Cell 6.4 10^3/uL (4.4-10.8)
[2019-01-04 12:56] LABS: Albumin 3.9 g/dL (3.4-5.0); BUN/Creatinine Ratio 23.9; Bilirubin, Total 0.5 mg/dL (0.2-1.0); Magnesium 2.4 mg/dL (1.6-2.6)
== END | disposition home or self-care (01) ==
LOC: CHF HDHVI 09:20
PROVIDERS: ATTEND Internal Medicine Cardiovascular Disease
DX: I27.20 Pulmonary hypertension, unspecified (principal); E11.9 Type 2 diabetes mellitus without complications; D64.9 Anemia, unspecified; E55.9 Vitamin D deficiency, unspecified; I25.10 Atherosclerotic heart disease of native coronary artery without angina pectoris; I11.0 Hypertensive heart disease with heart failure; I50.9 Heart failure, unspecified
CPT/HCPCS: 36415; 80053; 82306; 83036; 83735; 85025; 93701; 94618; G0463

== ENCOUNTER → 2019-01-26 | Outpatient (CLI) | payer MEDICARE ==
[2019-01-26 13:10] VITALS: BP 124/74
--- NOTE | 2019-01-26 14:00 | NUR ---
PAH EVALUATION. REVIEWED MEDS AND STATUS. WITHOUT COMPLAINT. Discharge Instructions See e-MAR for any mediations given with this visit. Patient education given on disease process. Patient verbalized understanding. Previous labs reviewed. Patient discharged in stable condition with after care instructions and follow up appointment.
[2019-01-26 16:20] LABS: Potassium 3.9 mmol/L (3.5-5.1)
== END | disposition home or self-care (01) ==
LOC: CHF HDHVI 13:24
PROVIDERS: ATTEND Internal Medicine
DX: R94.4 Abnormal results of kidney function studies (principal); E87.6 Hypokalemia; I27.21 Secondary pulmonary arterial hypertension
CPT/HCPCS: 36415; 82565; 84132; 84520; G0463

== ENCOUNTER → 2019-02-23 | Outpatient (CLI) | payer MEDICARE ==
[~2019-02-23] MED LIST changes: +CYANOCOBALAMIN (B-12) 1000 MCG/1 ML VIAL IM ONE; +CYANOCOBALAMIN (B-12) 1000 MCG/1 ML VIAL ONE
[2019-02-23 11:07] VITALS: BP 136/68
--- NOTE | 2019-02-23 11:07 | NUR ---
CHF PT AT CHF CLINIC FOR MONTHLY PAH F/U. PT ALERT AND ORIENTED 0 DISTRESS. V/S OBTAINED.
--- NOTE | 2019-02-23 11:45 | NUR ---
CARDIODYNAMICS DISCUSSED CARDIODYNAMICS WITH PATIENT , RESULTS IMPROVED PT VERBALIZED UNDERSTANDING
--- NOTE | 2019-02-23 11:45 | NUR ---
Clinic Provider Clinic Provider UPDATED with new orders received and carried out.
[2019-02-23 11:52] VITALS: BP 132/56
--- NOTE | 2019-02-23 11:52 | NUR ---
Discharge Instructions See e-MAR for any mediations given with this visit. Patient education given on disease process. Patient verbalized understanding. Previous labs reviewed. Patient discharged in stable condition with after care instructions and follow up appointment. MEDICATIONS 1150 VITAMIN B12 1000 MCG IM X 1 LOT #[id number] EXP 11/24
[2019-02-23 16:03] LABS: Basophils # (auto) 0 uL; Basophils % (auto) 0.4 % (0.0-2.0); Eosinophils # (auto) 0.2 uL; Eosinophils % (auto) 2.9 % (0.0-7.0); Hematocrit 47.8 % (36.0-46.0); Hemoglobin 15.9 g/dL (12.2-16.2); Lymphocytes # (auto) 0.9 uL; Lymphocytes % (auto) 12.4 % (10.0-50.0); Mean Corpuscular Hemoglobin 29.1 pg (28.0-32.0); Mean Corpuscular Hgb Conc. 33.3 g/dL (32.0-36.0); Mean Corpuscular Volume 87.4 fL (80.0-100.0); Monocytes # (auto) 0.7 uL; Monocytes % (auto) 8.9 % (0.0-12.0); Neutrophils # (auto) 5.7 uL; Neutrophils % (auto) 75.4 % (37.0-80.0); Platelet Count (auto) 240 10^3/uL (140-450); Red Blood Cells 5.48 10^6/uL (4.0-5.20); White Blood Cell 7.6 10^3/uL (4.4-10.8)
[2019-02-23 16:05] LABS: Albumin 3.9 g/dL (3.4-5.0); Calcium 9.7 mg/dL (8.5-10.1); Magnesium 2.4 mg/dL (1.6-2.6); Potassium 4.1 mmol/L (3.5-5.1)
[2019-02-23 16:08] LABS: BUN/Creatinine Ratio 23.5; Bilirubin, Total 0.6 mg/dL (0.2-1.0); Total Protein 7.1 g/dL (6.4-8.2)
== END | disposition home or self-care (01) ==
LOC: CHF HDHVI 11:00
PROVIDERS: ATTEND Internal Medicine Cardiovascular Disease
DX: E83.40 Disorders of magnesium metabolism, unspecified (principal); D64.9 Anemia, unspecified; I27.21 Secondary pulmonary arterial hypertension; I11.0 Hypertensive heart disease with heart failure; I25.10 Atherosclerotic heart disease of native coronary artery without angina pectoris; I50.9 Heart failure, unspecified; E11.9 Type 2 diabetes mellitus without complications
CPT/HCPCS: 36415; 80053; 83735; 85025; 93701; 96372; G0463; J3420

== ENCOUNTER → 2019-03-07 | Outpatient (CLI) | payer MEDICARE ==
[~2019-03-07] MED LIST changes: -CYANOCOBALAMIN (B-12) 1000 MCG/1 ML VIAL ONE
--- NOTE | 2019-03-07 11:30 | NUR ---
PT. TO PAH CLINIC FOR EVAL. AND TX. PT C/O REDNESS TO EYES FOR A FEW DAYS, WITH NO VISUAL DISTURBANCES. ORDERS RECEIVED AND CARRIED OUT. SEE NSG ASSESS.
[2019-03-07 11:40] VITALS: BP 115/62
--- NOTE | 2019-03-07 12:00 | NUR ---
CARDIODYNAMICS DONE WITH RESULTS REVIEWED WITH PT. AND CHARTED. SLIGHT INCREASE IN SVR, WITH UNCHANGED TFC.
[2019-03-07] MEDS: CYANOCOBALAMIN (B-12) 1000 MCG/1 ML VIAL ONE (12:26)
--- NOTE | 2019-03-07 12:26 | NUR ---
MEDS: PT. MEDICATED WITH VIT. B12 1000MG IM LFT DELT. PER MD ORDER.
[2019-03-07 12:40] VITALS: BP 128/71
--- NOTE | 2019-03-07 12:40 | NUR ---
Discharge Instructions See e-MAR for any mediations given with this visit. Patient education given on disease process. Patient verbalized understanding. Previous labs reviewed. Patient discharged in stable condition with after care instructions and follow up appointment. PT. TO RTC IN 1 WEEK FOR FURTHER DIAGNOSTICS.
== END | disposition home or self-care (01) ==
LOC: CHF HDHVI 11:34
PROVIDERS: ATTEND Internal Medicine
DX: I11.0 Hypertensive heart disease with heart failure (principal); I50.9 Heart failure, unspecified; D64.9 Anemia, unspecified; I27.21 Secondary pulmonary arterial hypertension; I25.10 Atherosclerotic heart disease of native coronary artery without angina pectoris; E11.9 Type 2 diabetes mellitus without complications
CPT/HCPCS: 93701; 96372; G0463

== ENCOUNTER → 2019-03-14 | Outpatient (CLI) | payer MEDICARE ==
[~2019-03-14] MED LIST changes: -CYANOCOBALAMIN (B-12) 1000 MCG/1 ML VIAL IM ONE
[2019-03-14 11:30] VITALS: BP 122/58
--- NOTE | 2019-03-14 11:30 | NUR ---
CHF PT ARRIVED TO THE CHF CLINIC FOR PAH F/U. PT A/O X 3 V/S OBTAINED
--- NOTE | 2019-03-14 12:20 | NUR ---
Discharge Instructions See e-MAR for any mediations given with this visit. Patient education given on disease process. Patient verbalized understanding. Previous labs reviewed. Patient discharged in stable condition with after care instructions and follow up appointment.
[2019-03-14 16:01] LABS: Basophils # (auto) 0 uL; Basophils % (auto) 0.3 % (0.0-2.0); Eosinophils # (auto) 0.3 uL; Eosinophils % (auto) 5.2 % (0.0-7.0); Hematocrit 45.5 % (36.0-46.0); Hemoglobin 15.2 g/dL (12.2-16.2); Lymphocytes # (auto) 1.1 uL; Lymphocytes % (auto) 16.9 % (10.0-50.0); Mean Corpuscular Hemoglobin 28.9 pg (28.0-32.0); Mean Corpuscular Hgb Conc. 33.4 g/dL (32.0-36.0); Mean Corpuscular Volume 86.5 fL (80.0-100.0); Monocytes # (auto) 0.6 uL; Monocytes % (auto) 8.8 % (0.0-12.0); Neutrophils # (auto) 4.5 uL; Neutrophils % (auto) 68.8 % (37.0-80.0); Nucleated Red Blood Cells % 0.1 %; Platelet Count (auto) 221 10^3/uL (140-450); Red Blood Cells 5.26 10^6/uL (4.0-5.20); Red Cell Distribution Width 13.8 % (11.8-14.3); White Blood Cell 6.5 10^3/uL (4.4-10.8)
[2019-03-14 16:02] LABS: Calcium 9.8 mg/dL (8.5-10.1); Potassium 3.8 mmol/L (3.5-5.1)
== END | disposition home or self-care (01) ==
LOC: CHF HDHVI 11:13
PROVIDERS: ATTEND Internal Medicine Cardiovascular Disease
DX: D64.9 Anemia, unspecified (principal); I10 Essential (primary) hypertension
CPT/HCPCS: 36415; 80048; 85025; G0463

== ENCOUNTER → 2019-03-29 | Outpatient (CLI) | payer MEDICARE | END | disposition home or self-care (01) | LOC: Rad HDHVI 08:03 | PROVIDERS: ATTEND Internal Medicine Cardiovascular Disease | DX: I82.492 Acute embolism and thrombosis of other specified deep vein of left lower extremity (principal) | CPT/HCPCS: 93971 ==

== ENCOUNTER → 2019-04-13 | Outpatient (CLI) | payer MEDICARE ==
[2019-04-13 11:00] VITALS: BP 124/77
--- NOTE | 2019-04-13 11:00 | NUR ---
CHF PT ARRIVED AT THE CHF CLINIC FOR PAH EVAL, CARDIODYNAMICS 6 MWT/ TEST COMPLETE PT TOLERATED WELL RESULTS DISCUSSED WITH THE PATIENT. PT VERBALIZED UNDERSTANDING/ V/S OBTAINED
[2019-04-13 12:30] VITALS: BP 125/72
[2019-04-13 16:35] LABS: Potassium 3.5 mmol/L (3.5-5.1)
== END | disposition home or self-care (01) ==
LOC: CHF HDHVI 10:53
PROVIDERS: ATTEND Internal Medicine Cardiovascular Disease
DX: R94.4 Abnormal results of kidney function studies (principal); E87.6 Hypokalemia; D64.9 Anemia, unspecified; I25.10 Atherosclerotic heart disease of native coronary artery without angina pectoris; I27.21 Secondary pulmonary arterial hypertension; I10 Essential (primary) hypertension
CPT/HCPCS: 36415; 82565; 84132; 84520; 93701; 94618; G0463

== ENCOUNTER → 2019-05-08 | Outpatient (CLI) | payer MEDICARE ==
[~2019-05-08] VITALS: Ht 30.5 cm; Wt 0.5 kg
[~2019-05-08] MED LIST changes: +CYANOCOBALAMIN (B-12) 1000 MCG/1 ML VIAL IM ONE; +CYANOCOBALAMIN (B-12) 1000 MCG/1 ML VIAL ONE
[2019-05-08 11:15] VITALS: BP 124/70
[2019-05-08 12:24] VITALS: BP 106/69
--- NOTE | 2019-05-08 12:24 | NUR ---
CHF CLINIC Discharge Instructions See e-MAR for any mediations given with this visit. Patient education given on disease process. Patient verbalized understanding. Previous labs reviewed. Patient discharged in stable condition with after care instructions and follow up appointment. NOTE CARDIODYNAMICS PERFORMED BY EDU BURK AND REVIEWED WITH PT BY BRAXTON Mccoy IM L DELTOID ADMIN BY MARTHA BURK
[2019-05-08 16:16] LABS: BUN/Creatinine Ratio 31.5; Calcium 10.2 mg/dL (8.5-10.1)
[2019-05-08 17:13] LABS: Basophils # (auto) 0.1 uL; Basophils % (auto) 0.7 % (0.0-2.0); Eosinophils # (auto) 0.3 uL; Eosinophils % (auto) 4.1 % (0.0-7.0); Hematocrit 46.8 % (36.0-46.0); Hemoglobin 15.5 g/dL (12.2-16.2); Lymphocytes # (auto) 1.1 uL; Lymphocytes % (auto) 14.5 % (10.0-50.0); Mean Corpuscular Hemoglobin 28.8 pg (28.0-32.0); Mean Corpuscular Hgb Conc. 33.2 g/dL (32.0-36.0); Mean Corpuscular Volume 86.7 fL (80.0-100.0); Monocytes # (auto) 0.7 uL; Monocytes % (auto) 9.4 % (0.0-12.0); Neutrophils # (auto) 5.6 uL; Neutrophils % (auto) 71.3 % (37.0-80.0); Nucleated Red Blood Cells % 0.1 %; Platelet Count (auto) 260 10^3/uL (140-450); Red Cell Distribution Width 13.8 % (11.8-14.3); White Blood Cell 7.9 10^3/uL (4.4-10.8)
== END | disposition home or self-care (01) ==
LOC: CHF HDHVI 11:15
PROVIDERS: ATTEND Internal Medicine Cardiovascular Disease
DX: I27.21 Secondary pulmonary arterial hypertension (principal); I48.91 Unspecified atrial fibrillation; I25.10 Atherosclerotic heart disease of native coronary artery without angina pectoris; D64.9 Anemia, unspecified; K90.9 Intestinal malabsorption, unspecified; I10 Essential (primary) hypertension
CPT/HCPCS: 36415; 80048; 82306; 85025; 93701; 96372; G0463; J3420

== ENCOUNTER → 2019-12-07 | Outpatient (CLI) | payer MEDICARE ==
[~2019-12-07] MED LIST changes: -CYANOCOBALAMIN (B-12) 1000 MCG/1 ML VIAL IM ONE; -CYANOCOBALAMIN (B-12) 1000 MCG/1 ML VIAL ONE
[2019-12-07 11:15] VITALS: BP 117/45
[2019-12-07 11:56] LABS: Basophils # (auto) 0.1 10 ^3/uL (0-0.2); Basophils % (auto) 0.6 % (0.0-2.0); Eosinophils # (auto) 0.2 10 ^3/uL (0-0.8); Eosinophils % (auto) 2.7 % (0.0-7.0); Hematocrit 46.4 % (36.0-46.0); Hemoglobin 15.7 g/dL (12.2-16.2); Lymphocytes # (auto) 1.1 10 ^3/uL (0.4-5.4); Lymphocytes % (auto) 12.5 % (10.0-50.0); Mean Corpuscular Hemoglobin 29.8 pg (28.0-32.0); Mean Corpuscular Hgb Conc. 33.8 g/dL (32.0-36.0); Monocytes # (auto) 0.8 10 ^3/uL (0-1.3); Monocytes % (auto) 9.5 % (0.0-12.0); Neutrophils # (auto) 6.5 10 ^3/uL (1.6-8.6); Neutrophils % (auto) 74.7 % (37.0-80.0); Nucleated Red Blood Cells % 0.3 %; Platelet Count (auto) 206 10^3/uL (140-450); Red Blood Cells 5.27 10^6/uL (4.0-5.20); Red Cell Distribution Width 13.9 % (11.8-14.3); White Blood Cell 8.8 10^3/uL (4.4-10.8)
[2019-12-07 12:12] LABS: Albumin 3.7 g/dL (3.4-5.0); Calcium 9.9 mg/dL (8.5-10.1); Potassium 3.8 mmol/L (3.5-5.1)
[2019-12-07 12:16] LABS: BUN/Creatinine Ratio 22.9; Bilirubin, Total 0.8 mg/dL (0.2-1.0); Total Protein 7.2 g/dL (6.4-8.2)
[2019-12-07 12:35] LABS: INR 0.98 (0.9-1.15); Partial Thromboplastin Time 24.8 sec (23.64-32.05)
[2019-12-07 12:45] VITALS: BP 131/72
== END | disposition home or self-care (01) ==
LOC: LAB 10:46
PROVIDERS: ATTEND Internal Medicine
DX: Z01.812 Encounter for preprocedural laboratory examination (principal); D64.9 Anemia, unspecified; K90.9 Intestinal malabsorption, unspecified; I10 Essential (primary) hypertension; Z79.899 Other long term (current) drug therapy
CPT/HCPCS: 36415; 80053; 85025; 85610; 85730; 93701; 94618; G0463

== ENCOUNTER → 2020-04-01 | Outpatient (CLI) | payer MEDICARE ==
[2020-04-01 09:36] LABS: Basophils # (auto) 0 10 ^3/uL (0-0.2); Basophils % (auto) 0.6 % (0.0-2.0); Eosinophils # (auto) 0.3 10 ^3/uL (0-0.8); Eosinophils % (auto) 5.7 % (0.0-7.0); Hemoglobin 14.1 g/dL (12.2-16.2); Lymphocytes # (auto) 1.2 10 ^3/uL (0.4-5.4); Lymphocytes % (auto) 22.7 % (10.0-50.0); Mean Corpuscular Hemoglobin 27.3 pg (28.0-32.0); Mean Corpuscular Hgb Conc. 32.8 g/dL (32.0-36.0); Mean Corpuscular Volume 83.3 fL (80.0-100.0); Monocytes # (auto) 0.5 10 ^3/uL (0-1.3); Monocytes % (auto) 8.7 % (0.0-12.0); Neutrophils # (auto) 3.4 10 ^3/uL (1.6-8.6); Neutrophils % (auto) 62.3 % (37.0-80.0); Nucleated Red Blood Cells % 0.1 %; Platelet Count (auto) 292 10^3/uL (140-450); Red Blood Cells 5.16 10^6/uL (4.0-5.20); Red Cell Distribution Width 16.2 % (11.8-14.3); White Blood Cell 5.4 10^3/uL (4.4-10.8)
[2020-04-01 09:51] LABS: Urine Blood Negative /uL (Negative); Urine Specific Gravity 1.013 (1.001-1.035)
[2020-04-01 10:00] LABS: Albumin 3.6 g/dL (3.4-5.0); Calcium 10.1 mg/dL (8.5-10.1); Potassium 3.6 mmol/L (3.5-5.1)
[2020-04-01 10:04] LABS: Bilirubin, Direct 0.1 mg/dL (0-0.2); Bilirubin, Total 0.3 mg/dL (0.2-1.0); Total Protein 7.2 g/dL (6.4-8.2)
== END | disposition home or self-care (01) ==
LOC: LAB 09:03
PROVIDERS: ATTEND Internal Medicine Cardiovascular Disease
DX: N39.0 Urinary tract infection, site not specified (principal); Z00.00 Encounter for general adult medical examination without abnormal findings; E03.9 Hypothyroidism, unspecified; K90.9 Intestinal malabsorption, unspecified; Z79.899 Other long term (current) drug therapy; D51.9 Vitamin B12 deficiency anemia, unspecified
CPT/HCPCS: 36415; 80048; 80061; 80076; 81003; 82306; 83036; 84443; 85025

== ENCOUNTER → 2020-04-26 | Outpatient (CLI) | payer MEDICARE | END | disposition home or self-care (01) | LOC: Rad HDHVI 09:03 | PROVIDERS: ATTEND Internal Medicine Cardiovascular Disease | DX: I08.2 Rheumatic disorders of both aortic and tricuspid valves (principal); I10 Essential (primary) hypertension; J44.9 Chronic obstructive pulmonary disease, unspecified; R06.02 Shortness of breath | CPT/HCPCS: 93306 ==

== ENCOUNTER → 2020-05-14 | Outpatient (CLI) | payer MEDICARE ==
[~2020-05-14] VITALS: Ht 157.5 cm; Wt 56.2 kg
[~2020-05-14] MED LIST changes: +ADENOSINE 47 MG in GIVE UN-DILUTED 0 ML IV ONE; +ADENOSINE 90 MG/30 ML INJ IV ONE
== END | disposition home or self-care (01) ==
LOC: Rad HDHVI 09:30
PROVIDERS: ATTEND Internal Medicine Cardiovascular Disease
DX: I25.10 Atherosclerotic heart disease of native coronary artery without angina pectoris (principal); I10 Essential (primary) hypertension; E78.00 Pure hypercholesterolemia, unspecified; Z82.49 Family history of ischemic heart disease and other diseases of the circulatory system
CPT/HCPCS: 78452; 93005; 96374; 96375; A9500; J0153

== ENCOUNTER → 2020-08-01 | Outpatient (CLI) | payer MEDICARE ==
[~2020-08-01] MED LIST changes: -ADENOSINE 47 MG in GIVE UN-DILUTED 0 ML IV ONE; -ADENOSINE 90 MG/30 ML INJ IV ONE
[2020-08-01 15:49] LABS: Basophils # (auto) 0 10 ^3/uL (0-0.2); Basophils % (auto) 0.4 % (0.0-2.0); Eosinophils # (auto) 1.2 10 ^3/uL (0-0.8); Eosinophils % (auto) 11.9 % (0.0-7.0); Hematocrit 44.6 % (36.0-46.0); Hemoglobin 14.7 g/dL (12.2-16.2); Lymphocytes # (auto) 1.4 10 ^3/uL (0.4-5.4); Lymphocytes % (auto) 13.9 % (10.0-50.0); Mean Corpuscular Hemoglobin 28.3 pg (28.0-32.0); Monocytes # (auto) 0.7 10 ^3/uL (0-1.3); Monocytes % (auto) 7.3 % (0.0-12.0); Neutrophils # (auto) 6.6 10 ^3/uL (1.6-8.6); Neutrophils % (auto) 66.5 % (37.0-80.0); Nucleated Red Blood Cells % 0.5 %; Platelet Count (auto) 301 10^3/uL (140-450); Red Blood Cells 5.19 10^6/uL (4.0-5.20); Red Cell Distribution Width 14.2 % (11.8-14.3)
[2020-08-01 16:03] LABS: Potassium 3.7 mmol/L (3.5-5.1)
[2020-08-01 16:09] LABS: Albumin 4.1 g/dL (3.4-5.0); BUN/Creatinine Ratio 30.6; Bilirubin, Total 0.5 mg/dL (0.2-1.0); CRP High Sensitivity 0.11 mg/dL (< 0.3); Calcium 10.4 mg/dL (8.5-10.1); Total Protein 7.7 g/dL (6.4-8.2)
== END | disposition home or self-care (01) ==
LOC: LAB 12:04
PROVIDERS: ATTEND Internal Medicine
DX: I10 Essential (primary) hypertension (principal); R79.82 Elevated C-reactive protein (CRP); D64.9 Anemia, unspecified
CPT/HCPCS: 36415; 80053; 85025; 86141

== ENCOUNTER → 2020-09-23 | Outpatient (CLI) | payer MEDICARE ==
[2020-09-23 16:04] LABS: Basophils # (auto) 0 10 ^3/uL (0-0.2); Basophils % (auto) 0.6 % (0.0-2.0); Eosinophils # (auto) 0.4 10 ^3/uL (0-0.8); Eosinophils % (auto) 9.4 % (0.0-7.0); Hematocrit 41.7 % (36.0-46.0); Hemoglobin 14.4 g/dL (12.2-16.2); Lymphocytes % (auto) 21.1 % (10.0-50.0); Mean Corpuscular Hemoglobin 30.7 pg (28.0-32.0); Mean Corpuscular Hgb Conc. 34.6 g/dL (32.0-36.0); Mean Corpuscular Volume 88.8 fL (80.0-100.0); Monocytes # (auto) 0.4 10 ^3/uL (0-1.3); Monocytes % (auto) 8.8 % (0.0-12.0); Neutrophils # (auto) 2.9 10 ^3/uL (1.6-8.6); Neutrophils % (auto) 60.1 % (37.0-80.0); Nucleated Red Blood Cells % 0.4 %; Platelet Count (auto) 317 10^3/uL (140-450); Red Blood Cells 4.69 10^6/uL (4.0-5.20); Red Cell Distribution Width 13.7 % (11.8-14.3); White Blood Cell 4.8 10^3/uL (4.4-10.8)
[2020-09-23 16:07] LABS: Urine Blood Negative /uL (Negative); Urine Specific Gravity 1.008 (1.001-1.035)
[2020-09-23 16:18] LABS: Albumin 3.5 g/dL (3.4-5.0); Calcium 9.6 mg/dL (8.5-10.1); Potassium 3.7 mmol/L (3.5-5.1)
[2020-09-23 16:22] LABS: BUN/Creatinine Ratio 17.7; Bilirubin, Total 0.4 mg/dL (0.2-1.0)
[2020-09-23 16:25] LABS: Free T4 (Free Thyroxine) 0.74 ng/dL (0.89-1.76)
== END | disposition home or self-care (01) ==
LOC: Rad HDHVI 11:44
PROVIDERS: ATTEND Internal Medicine Cardiovascular Disease
DX: J98.11 Atelectasis (principal); J98.4 Other disorders of lung; M40.294 Other kyphosis, thoracic region; M47.814 Spondylosis without myelopathy or radiculopathy, thoracic region; D51.3 Other dietary vitamin B12 deficiency anemia; E11.9 Type 2 diabetes mellitus without complications; I10 Essential (primary) hypertension; E55.9 Vitamin D deficiency, unspecified; R00.2 Palpitations; R53.1 Weakness; R30.0 Dysuria; R06.02 Shortness of breath; Z98.890 Other specified postprocedural states
CPT/HCPCS: 36415; 71046; 80053; 80061; 81003; 82607; 83036; 84439; 84443; 85025

== ENCOUNTER → 2021-01-08 | Outpatient (CLI) | payer MEDICARE ==
[~2021-01-08] MED LIST changes: -CLOP75TA41 PO; +CLOP75TA70 PO
[2021-01-08 12:01] LABS: Basophils # (auto) 0 10 ^3/uL (0-0.2); Basophils % (auto) 0.5 % (0.0-2.0); Eosinophils # (auto) 0.7 10 ^3/uL (0-0.8); Eosinophils % (auto) 8.9 % (0.0-7.0); Hematocrit 45.6 % (36.0-46.0); Hemoglobin 15.3 g/dL (12.2-16.2); Lymphocytes # (auto) 1.6 10 ^3/uL (0.4-5.4); Lymphocytes % (auto) 20.6 % (10.0-50.0); Mean Corpuscular Hemoglobin 28.9 pg (28.0-32.0); Mean Corpuscular Hgb Conc. 33.5 g/dL (32.0-36.0); Mean Corpuscular Volume 86.4 fL (80.0-100.0); Monocytes # (auto) 0.7 10 ^3/uL (0-1.3); Monocytes % (auto) 8.5 % (0.0-12.0); Neutrophils # (auto) 4.7 10 ^3/uL (1.6-8.6); Neutrophils % (auto) 61.5 % (37.0-80.0); Nucleated Red Blood Cells % 0.3 %; Platelet Count (auto) 285 10^3/uL (140-450); Red Blood Cells 5.27 10^6/uL (4.0-5.20); Red Cell Distribution Width 13.5 % (11.8-14.3); White Blood Cell 7.7 10^3/uL (4.4-10.8)
[2021-01-08 12:17] LABS: Albumin 3.7 g/dL (3.4-5.0); Calcium 10.3 mg/dL (8.5-10.1); Potassium 3.8 mmol/L (3.5-5.1)
[2021-01-08 12:22] LABS: BUN/Creatinine Ratio 21.1; Bilirubin, Total 0.5 mg/dL (0.2-1.0)
== END | disposition home or self-care (01) ==
LOC: LAB 08:48
PROVIDERS: ATTEND Internal Medicine
DX: I10 Essential (primary) hypertension (principal); D64.9 Anemia, unspecified; E03.9 Hypothyroidism, unspecified
CPT/HCPCS: 36415; 80053; 84443; 85025

== ENCOUNTER → 2021-02-20 | Outpatient (CLI) | payer MEDICARE ==
[~2021-02-20] MED LIST changes: +CYANOCOBALAMIN (B-12) 1000 MCG/1 ML VIAL IM ONE; +CYANOCOBALAMIN (B-12) 1000 MCG/1 ML VIAL ONE
[2021-02-20 15:00] VITALS: BP 152/77
[2021-02-20 16:00] VITALS: BP 125/68
== END | disposition home or self-care (01) ==
LOC: Rad HDHVI 14:02
PROVIDERS: ATTEND Internal Medicine Cardiovascular Disease
DX: I27.0 Primary pulmonary hypertension (principal); D64.9 Anemia, unspecified; E03.9 Hypothyroidism, unspecified; R00.2 Palpitations
CPT/HCPCS: 93306; 94618; 96372; G0463; J3420

== ENCOUNTER → 2021-03-06 | Outpatient (CLI) | payer MEDICARE ==
[~2021-03-06] MED LIST changes: -CYANOCOBALAMIN (B-12) 1000 MCG/1 ML VIAL IM ONE; -CYANOCOBALAMIN (B-12) 1000 MCG/1 ML VIAL ONE
[2021-03-06 10:12] VITALS: BP 113/82
[2021-03-06 10:37] VITALS: BP 135/74
== END | disposition home or self-care (01) ==
LOC: CHF HDHVI 10:11
PROVIDERS: ATTEND Internal Medicine Cardiovascular Disease
DX: I27.0 Primary pulmonary hypertension (principal); E87.6 Hypokalemia; Z79.899 Other long term (current) drug therapy
CPT/HCPCS: 36415; 84132; G0463

== ENCOUNTER → 2021-04-09 | Outpatient (CLI) | payer MEDICARE ==
[~2021-04-09] MED LIST changes: +CYANOCOBALAMIN (B-12) 1000 MCG/1 ML VIAL IM ONE; +CYANOCOBALAMIN (B-12) 1000 MCG/1 ML VIAL ONE
[2021-04-09 11:07] VITALS: BP 121/45
[2021-04-09 12:07] VITALS: BP 112/57
[2021-04-09 15:27] LABS: Basophils # (auto) 0 10 ^3/uL (0-0.2); Basophils % (auto) 0.5 % (0.0-2.0); Eosinophils # (auto) 0.4 10 ^3/uL (0-0.8); Eosinophils % (auto) 4.6 % (0.0-7.0); Hematocrit 43.7 % (36.0-46.0); Hemoglobin 15.4 g/dL (12.2-16.2); Lymphocytes # (auto) 1.4 10 ^3/uL (0.4-5.4); Lymphocytes % (auto) 15.4 % (10.0-50.0); Mean Corpuscular Hemoglobin 29.6 pg (28.0-32.0); Mean Corpuscular Hgb Conc. 35.3 g/dL (32.0-36.0); Mean Corpuscular Volume 83.9 fL (80.0-100.0); Monocytes # (auto) 0.7 10 ^3/uL (0-1.3); Monocytes % (auto) 7.7 % (0.0-12.0); Neutrophils # (auto) 6.5 10 ^3/uL (1.6-8.6); Neutrophils % (auto) 71.8 % (37.0-80.0); Red Blood Cells 5.21 10^6/uL (4.0-5.20); Red Cell Distribution Width 14.4 % (11.8-14.3); White Blood Cell 9.1 10^3/uL (4.4-10.8)
[2021-04-09 15:34] LABS: Albumin 3.9 g/dL (3.4-5.0); BUN/Creatinine Ratio 21.5; Calcium 10.2 mg/dL (8.5-10.1); Potassium 3.6 mmol/L (3.5-5.1)
[2021-04-09 15:36] LABS: Bilirubin, Total 0.6 mg/dL (0.2-1.0); Total Protein 7.4 g/dL (6.4-8.2)
== END | disposition home or self-care (01) ==
LOC: CHF HDHVI 11:18
PROVIDERS: ATTEND Internal Medicine
DX: I27.21 Secondary pulmonary arterial hypertension (principal); R53.83 Other fatigue; R06.02 Shortness of breath; E87.6 Hypokalemia; Z79.899 Other long term (current) drug therapy
CPT/HCPCS: 36415; 80053; 85025; 85049; 94618; 96372; G0463; J3420

== ENCOUNTER → 2021-05-07 | Outpatient (CLI) | payer MEDICARE ==
[2021-05-07 11:11] VITALS: BP 134/71
[2021-05-07 11:30] VITALS: BP 119/62
[2021-05-07 15:51] LABS: Basophils # (auto) 0 10 ^3/uL (0-0.2); Basophils % (auto) 0.5 % (0.0-2.0); Eosinophils # (auto) 0.4 10 ^3/uL (0-0.8); Hematocrit 46.9 % (36.0-46.0); Hemoglobin 15.7 g/dL (12.2-16.2); Lymphocytes % (auto) 25.6 % (10.0-50.0); Mean Corpuscular Hemoglobin 28.2 pg (28.0-32.0); Mean Corpuscular Hgb Conc. 33.5 g/dL (32.0-36.0); Mean Corpuscular Volume 84.4 fL (80.0-100.0); Monocytes # (auto) 0.6 10 ^3/uL (0-1.3); Neutrophils # (auto) 4.8 10 ^3/uL (1.6-8.6); Neutrophils % (auto) 60.9 % (37.0-80.0); Nucleated Red Blood Cells % 0.1 %; Red Blood Cells 5.55 10^6/uL (4.0-5.20); Red Cell Distribution Width 14.3 % (11.8-14.3)
[2021-05-07 16:09] LABS: Calcium 10.1 mg/dL (8.5-10.1); Magnesium 2.4 mg/dL (1.6-2.6); Potassium 4.1 mmol/L (3.5-5.1)
[2021-05-07 16:11] LABS: BUN/Creatinine Ratio 18.4
[2021-05-07 16:14] LABS: Bilirubin, Total 0.6 mg/dL (0.2-1.0); Total Protein 7.3 g/dL (6.4-8.2)
== END | disposition home or self-care (01) ==
LOC: CHF HDHVI 11:10
PROVIDERS: ATTEND Internal Medicine
DX: I27.21 Secondary pulmonary arterial hypertension (principal); J98.11 Atelectasis; R53.83 Other fatigue; R06.02 Shortness of breath; Z79.899 Other long term (current) drug therapy
CPT/HCPCS: 36415; 71046; 80053; 83735; 85025; 96372; G0463; J3420

== ENCOUNTER → 2021-10-23 | Day surgery (SDC) | payer MEDICARE ==
[2021-10-22 12:49] LABS: Basophils # (auto) 0 10 ^3/uL (0-0.2); Basophils % (auto) 0.4 % (0.0-2.0); Eosinophils # (auto) 0.4 10 ^3/uL (0-0.8); Eosinophils % (auto) 4.3 % (0.0-7.0); Hematocrit 44.6 % (36.0-46.0); Hemoglobin 15.2 g/dL (12.2-16.2); Lymphocytes # (auto) 1.4 10 ^3/uL (0.4-5.4); Lymphocytes % (auto) 14.9 % (10.0-50.0); Mean Corpuscular Hemoglobin 28.6 pg (28.0-32.0); Mean Corpuscular Volume 84.1 fL (80.0-100.0); Monocytes # (auto) 0.6 10 ^3/uL (0-1.3); Monocytes % (auto) 6.8 % (0.0-12.0); Neutrophils # (auto) 6.8 10 ^3/uL (1.6-8.6); Neutrophils % (auto) 73.6 % (37.0-80.0); Nucleated Red Blood Cells % 0.1 %; Red Blood Cells 5.31 10^6/uL (4.0-5.20); Red Cell Distribution Width 14.5 % (11.8-14.3); White Blood Cell 9.3 10^3/uL (4.4-10.8)
[2021-10-22 12:59] LABS: INR 0.98 (0.9-1.15); Partial Thromboplastin Time 25.6 sec (23.6-33.0)
[2021-10-22 13:08] LABS: Urine Bacteria NONE SEEN /hpf (None Seen); Urine Blood Negative /uL (Negative); Urine Specific Gravity 1.015 (1.001-1.035); Urine WBC 4 /hpf (0 - 5)
[2021-10-22 15:02] LABS: Potassium 3.2 mmol/L (3.5-5.1)
[2021-10-22 16:15] LABS: Albumin 3.7 g/dL (3.4-5.0); BUN/Creatinine Ratio 25.6; Bilirubin, Total 0.5 mg/dL (0.2-1.0); Calcium 9.9 mg/dL (8.5-10.1); Total Protein 7.6 g/dL (6.4-8.2)
[~2021-10-23] VITALS: Ht 157.5 cm; Wt 55.8 kg
[~2021-10-23] MED LIST changes: +BENZOCAINE (DENTAL) 20 % SPRAY 60ML MT ONE; +BIOT1SUB SL; +CALC667C5 PO; -CYANOCOBALAMIN (B-12) 1000 MCG/1 ML VIAL IM ONE; -CYANOCOBALAMIN (B-12) 1000 MCG/1 ML VIAL ONE; +DIPH1TAB30 PO; +HYDROmorphone HCL 2 MG/ML VL IV PRN; -LUBI24CA6 PO; +MAGN100T6 OR; +METOCLOPRAMIDE HCL 5MG/ml INJ 2ml VIAL IV PRN; +MIDAZOLAM HCL 2MG/2ML 2ml VIAL (1mg/ml) ONE; +MONT5CHW23 PO; +MORPHINE SULFATE 4 MG/ML SYR/VIAL IV PRN; +MULT-551 OR; +ONDANSETRON HCL 4 MG/2 ML VIAL ONE; +POTA1TAB61 PO; +PROPOFOL 10 MG/ML 20 ML IV ONE; +SILD50TA42 PO; +SODIUM CHLORIDE LOCK 10 ML ONE; +fentaNYL CITRATE 100 MCG/2 ML VL ONE
[2021-10-23 11:21] VITALS: BP 152/63
== END | disposition home or self-care (01) ==
LOC: GI 09:01
PROVIDERS: ATTEND Internal Medicine Gastroenterology
DX: R10.9 Unspecified abdominal pain (principal); K29.50 Unspecified chronic gastritis without bleeding; K21.00 Gastro-esophageal reflux disease with esophagitis, without bleeding; K44.9 Diaphragmatic hernia without obstruction or gangrene; K31.89 Other diseases of stomach and duodenum; J43.9 Emphysema, unspecified; I25.119 Atherosclerotic heart disease of native coronary artery with unspecified angina pectoris; I48.91 Unspecified atrial fibrillation; E03.9 Hypothyroidism, unspecified; E78.5 Hyperlipidemia, unspecified; I27.20 Pulmonary hypertension, unspecified; Z98.890 Other specified postprocedural states; Z86.2 Personal history of diseases of the blood and blood-forming organs and certain disorders involving the immune mechanism; Z82.49 Family history of ischemic heart disease and other diseases of the circulatory system; Z82.69 Family history of other diseases of the musculoskeletal system and connective tissue; Z81.8 Family history of other mental and behavioral disorders; Z84.89 Family history of other specified conditions; Z95.5 Presence of coronary angioplasty implant and graft; Z79.899 Other long term (current) drug therapy; Z88.6 Allergy status to analgesic agent; Z90.49 Acquired absence of other specified parts of digestive tract; Z90.89 Acquired absence of other organs; Z20.822 Contact with and (suspected) exposure to COVID-19
CPT/HCPCS: 36415; 43239; 80053; 81001; 85025; 85610; 85730; 88305; 88342; J2250; J2405; J2704; J3010; J7030; U0003; G0500

== ENCOUNTER → 2022-01-01 | Outpatient (CLI) | payer MEDICARE ==
[~2022-01-01] MED LIST changes: -BENZOCAINE (DENTAL) 20 % SPRAY 60ML MT ONE; +CYANOCOBALAMIN (B-12) 1000 MCG/1 ML VIAL IM ONE; +CYANOCOBALAMIN (B-12) 1000 MCG/1 ML VIAL ONE; -HYDROmorphone HCL 2 MG/ML VL IV PRN; -METOCLOPRAMIDE HCL 5MG/ml INJ 2ml VIAL IV PRN; -MIDAZOLAM HCL 2MG/2ML 2ml VIAL (1mg/ml) ONE; -MORPHINE SULFATE 4 MG/ML SYR/VIAL IV PRN; -ONDANSETRON HCL 4 MG/2 ML VIAL ONE; -PROPOFOL 10 MG/ML 20 ML IV ONE; -SODIUM CHLORIDE LOCK 10 ML ONE; -fentaNYL CITRATE 100 MCG/2 ML VL ONE
[2022-01-01 11:10] VITALS: BP 148/87
[2022-01-01 12:06] VITALS: BP 67/59
[2022-01-01 16:49] LABS: Basophils # (auto) 0.2 10 ^3/uL (0-0.2); Basophils % (auto) 1.8 % (0.0-2.0); Eosinophils # (auto) 0.3 10 ^3/uL (0-0.8); Eosinophils % (auto) 3.5 % (0.0-7.0); Hematocrit 43.4 % (36.0-46.0); Hemoglobin 14.4 g/dL (12.2-16.2); Lymphocytes # (auto) 1.6 10 ^3/uL (0.4-5.4); Lymphocytes % (auto) 16.6 % (10.0-50.0); Mean Corpuscular Hemoglobin 27.9 pg (28.0-32.0); Mean Corpuscular Hgb Conc. 33.1 g/dL (32.0-36.0); Mean Corpuscular Volume 84.4 fL (80.0-100.0); Monocytes # (auto) 0.8 10 ^3/uL (0-1.3); Monocytes % (auto) 7.9 % (0.0-12.0); Neutrophils % (auto) 70.2 % (37.0-80.0); Nucleated Red Blood Cells % 0.2 %; Red Blood Cells 5.14 10^6/uL (4.0-5.20); White Blood Cell 9.9 10^3/uL (4.4-10.8)
[2022-01-01 16:57] LABS: Albumin 3.8 g/dL (3.4-5.0); Calcium 10.1 mg/dL (8.5-10.1); Magnesium 2.8 mg/dL (1.6-2.6)
[2022-01-01 17:00] LABS: BUN/Creatinine Ratio 16.5; Bilirubin, Total 0.8 mg/dL (0.2-1.0); Total Protein 7.5 g/dL (6.4-8.2)
== END | disposition home or self-care (01) ==
LOC: CHF HDHVI 11:11
PROVIDERS: ATTEND Internal Medicine
DX: I27.21 Secondary pulmonary arterial hypertension (principal); J43.9 Emphysema, unspecified; I25.10 Atherosclerotic heart disease of native coronary artery without angina pectoris; I48.91 Unspecified atrial fibrillation; K21.9 Gastro-esophageal reflux disease without esophagitis; E78.5 Hyperlipidemia, unspecified; E03.9 Hypothyroidism, unspecified; Z79.899 Other long term (current) drug therapy; Z95.5 Presence of coronary angioplasty implant and graft; Z90.49 Acquired absence of other specified parts of digestive tract
CPT/HCPCS: 36415; 71046; 80053; 83735; 83880; 85025; 94618; 96372; G0463; J3420

== ENCOUNTER → 2022-01-29 | Outpatient (CLI) | payer MEDICARE ==
[2022-01-29 11:11] VITALS: BP 155/64
[2022-01-29 11:44] VITALS: BP 138/72
[2022-01-29 15:29] LABS: Basophils # (auto) 0 10 ^3/uL (0-0.2); Basophils % (auto) 0.5 % (0.0-2.0); Eosinophils # (auto) 0.3 10 ^3/uL (0-0.8); Eosinophils % (auto) 4.8 % (0.0-7.0); Hematocrit 41.9 % (36.0-46.0); Hemoglobin 14.1 g/dL (12.2-16.2); Lymphocytes # (auto) 1.4 10 ^3/uL (0.4-5.4); Lymphocytes % (auto) 20.2 % (10.0-50.0); Mean Corpuscular Hemoglobin 28.2 pg (28.0-32.0); Mean Corpuscular Hgb Conc. 33.7 g/dL (32.0-36.0); Mean Corpuscular Volume 83.4 fL (80.0-100.0); Monocytes # (auto) 0.6 10 ^3/uL (0-1.3); Monocytes % (auto) 9.1 % (0.0-12.0); Neutrophils # (auto) 4.7 10 ^3/uL (1.6-8.6); Neutrophils % (auto) 65.4 % (37.0-80.0); Nucleated Red Blood Cells % 0.1 %; Red Blood Cells 5.02 10^6/uL (4.0-5.20); Red Cell Distribution Width 14.1 % (11.8-14.3); White Blood Cell 7.1 10^3/uL (4.4-10.8)
[2022-01-29 15:40] LABS: Albumin 3.5 g/dL (3.4-5.0); Calcium 9.9 mg/dL (8.5-10.1); Magnesium 2.4 mg/dL (1.6-2.6); Potassium 3.8 mmol/L (3.5-5.1)
[2022-01-29 15:43] LABS: BUN/Creatinine Ratio 19.8; Bilirubin, Total 0.5 mg/dL (0.2-1.0); Total Protein 7.2 g/dL (6.4-8.2)
== END | disposition home or self-care (01) ==
LOC: CHF HDHVI 11:10
PROVIDERS: ATTEND Internal Medicine Cardiovascular Disease
DX: I27.21 Secondary pulmonary arterial hypertension (principal); I25.10 Atherosclerotic heart disease of native coronary artery without angina pectoris; I48.91 Unspecified atrial fibrillation; J43.9 Emphysema, unspecified; K21.9 Gastro-esophageal reflux disease without esophagitis; E78.5 Hyperlipidemia, unspecified; E03.9 Hypothyroidism, unspecified; Z79.899 Other long term (current) drug therapy; Z95.5 Presence of coronary angioplasty implant and graft; Z90.49 Acquired absence of other specified parts of digestive tract
CPT/HCPCS: 36415; 80053; 83735; 85025; 96372; G0463; J3420

== ENCOUNTER → 2022-02-03 | Outpatient (CLI) | payer MEDICARE ==
[~2022-02-03] MED LIST changes: -CYANOCOBALAMIN (B-12) 1000 MCG/1 ML VIAL IM ONE; -CYANOCOBALAMIN (B-12) 1000 MCG/1 ML VIAL ONE
[2022-02-03 12:08] LABS: Potassium 3.8 mmol/L (3.5-5.1)
[2022-02-03 12:13] LABS: Free T3 2.78 pg/mL (2.3-4.2); Free T4 (Free Thyroxine) 1.95 ng/dL (0.89-1.76)
[2022-02-03 12:16] LABS: Albumin 3.3 g/dL (3.4-5.0); BUN/Creatinine Ratio 20.6; Bilirubin, Total 0.4 mg/dL (0.2-1.0); Calcium 9.8 mg/dL (8.5-10.1); Total Protein 7.2 g/dL (6.4-8.2)
== END | disposition home or self-care (01) ==
LOC: LAB 10:16
PROVIDERS: ATTEND Internal Medicine
DX: E03.9 Hypothyroidism, unspecified (principal)
CPT/HCPCS: 36415; 80053; 84439; 84443; 84481

== ENCOUNTER → 2022-02-05 | Outpatient (CLI) | payer MEDICARE | END | disposition home or self-care (01) | LOC: Rad HDHVI 11:29 | PROVIDERS: ATTEND Internal Medicine | DX: M25.551 Pain in right hip (principal) ==

== ENCOUNTER → 2022-03-31 | Outpatient (CLI) | payer MEDICARE | END | disposition home or self-care (01) | LOC: LAB 10:47 | PROVIDERS: ATTEND Surgery | DX: Z01.812 Encounter for preprocedural laboratory examination (principal) | CPT/HCPCS: 36415; 82565; 84520 ==

== ENCOUNTER → 2022-04-27 | Outpatient (CLI) | payer MEDICARE ==
[~2022-04-27] MED LIST changes: +CYANOCOBALAMIN (B-12) 1000 MCG/1 ML VIAL IM ONE; +CYANOCOBALAMIN (B-12) 1000 MCG/1 ML VIAL ONE
[2022-04-27 11:15] VITALS: BP 109/49
[2022-04-27 11:50] LABS: Basophils # (auto) 0 10 ^3/uL (0-0.2); Basophils % (auto) 0.4 % (0.0-2.0); Eosinophils # (auto) 0.2 10 ^3/uL (0-0.8); Eosinophils % (auto) 3.6 % (0.0-7.0); Hematocrit 42.4 % (36.0-46.0); Hemoglobin 13.8 g/dL (12.2-16.2); Lymphocytes # (auto) 1.1 10 ^3/uL (0.4-5.4); Lymphocytes % (auto) 17.4 % (10.0-50.0); Mean Corpuscular Hgb Conc. 32.6 g/dL (32.0-36.0); Mean Corpuscular Volume 82.8 fL (80.0-100.0); Monocytes # (auto) 0.6 10 ^3/uL (0-1.3); Monocytes % (auto) 9.7 % (0.0-12.0); Neutrophils # (auto) 4.3 10 ^3/uL (1.6-8.6); Neutrophils % (auto) 68.9 % (37.0-80.0); Nucleated Red Blood Cells % 0.1 %; Red Blood Cells 5.12 10^6/uL (4.0-5.20); Red Cell Distribution Width 15.9 % (11.8-14.3); White Blood Cell 6.2 10^3/uL (4.4-10.8)
[2022-04-27 11:56] VITALS: BP 115/51
[2022-04-27 12:20] LABS: Albumin 3.6 g/dL (3.4-5.0); BUN/Creatinine Ratio 16.5; Calcium 9.5 mg/dL (8.5-10.1); Magnesium 2.2 mg/dL (1.6-2.6); Potassium 3.6 mmol/L (3.5-5.1)
[2022-04-27 12:23] LABS: Bilirubin, Total 0.8 mg/dL (0.2-1.0); Total Protein 6.7 g/dL (6.4-8.2)
== END | disposition home or self-care (01) ==
LOC: CHF HDHVI 11:19
PROVIDERS: ATTEND Internal Medicine Cardiovascular Disease
DX: I27.0 Primary pulmonary hypertension (principal); R53.83 Other fatigue; R53.1 Weakness; E03.9 Hypothyroidism, unspecified
CPT/HCPCS: 36415; 80053; 83735; 85025; 94618; 96372; G0463; J3420

== ENCOUNTER → 2022-05-12 | Outpatient (CLI) | payer MEDICARE ==
[~2022-05-12] MED LIST changes: -CYANOCOBALAMIN (B-12) 1000 MCG/1 ML VIAL IM ONE; -CYANOCOBALAMIN (B-12) 1000 MCG/1 ML VIAL ONE
[2022-05-12 12:43] LABS: Free T3 2.09 pg/mL (2.3-4.2); Free T4 (Free Thyroxine) 1.2 ng/dL (0.89-1.76)
== END | disposition home or self-care (01) ==
LOC: LAB 10:48
PROVIDERS: ATTEND Internal Medicine Cardiovascular Disease
DX: E03.9 Hypothyroidism, unspecified (principal); R19.5 Other fecal abnormalities
CPT/HCPCS: 36415; 84439; 84443; 84481

== ENCOUNTER → 2022-05-25 | Outpatient (CLI) | payer MEDICARE ==
[~2022-05-25] MED LIST changes: +CYANOCOBALAMIN (B-12) 1000 MCG/1 ML VIAL IM ONE; +CYANOCOBALAMIN (B-12) 1000 MCG/1 ML VIAL ONE
[2022-05-25 11:05] VITALS: BP 114/55
[2022-05-25 11:15] VITALS: BP 96/54
[2022-05-25 17:09] LABS: Basophils # (auto) 0 10 ^3/uL (0-0.2); Basophils % (auto) 0.5 % (0.0-2.0); Eosinophils # (auto) 0.6 10 ^3/uL (0-0.8); Hematocrit 40.8 % (36.0-46.0); Hemoglobin 12.9 g/dL (12.2-16.2); Lymphocytes # (auto) 1.3 10 ^3/uL (0.4-5.4); Lymphocytes % (auto) 14.6 % (10.0-50.0); Mean Corpuscular Hemoglobin 27.2 pg (28.0-32.0); Mean Corpuscular Hgb Conc. 31.6 g/dL (32.0-36.0); Monocytes # (auto) 0.8 10 ^3/uL (0-1.3); Monocytes % (auto) 8.9 % (0.0-12.0); Neutrophils # (auto) 6.1 10 ^3/uL (1.6-8.6); Red Blood Cells 4.75 10^6/uL (4.0-5.20); Red Cell Distribution Width 15.7 % (11.8-14.3); White Blood Cell 8.8 10^3/uL (4.4-10.8)
[2022-05-25 17:13] LABS: Potassium 3.7 mmol/L (3.5-5.1)
[2022-05-25 17:22] LABS: Albumin 3.5 g/dL (3.4-5.0); BUN/Creatinine Ratio 14.9; Bilirubin, Total 0.6 mg/dL (0.2-1.0); Calcium 10.1 mg/dL (8.5-10.1); Magnesium 2.2 mg/dL (1.6-2.6); Total Protein 6.8 g/dL (6.4-8.2)
== END | disposition home or self-care (01) ==
LOC: CHF HDHVI 11:01
PROVIDERS: ATTEND Internal Medicine Cardiovascular Disease
DX: I27.21 Secondary pulmonary arterial hypertension (principal); I10 Essential (primary) hypertension; E03.9 Hypothyroidism, unspecified
CPT/HCPCS: 36415; 80053; 83735; 85025; 96372; G0463; J3420

== ENCOUNTER → 2022-08-04 | Outpatient (CLI) | payer MEDICARE ==
[~2022-08-04] MED LIST changes: -CYANOCOBALAMIN (B-12) 1000 MCG/1 ML VIAL IM ONE; -CYANOCOBALAMIN (B-12) 1000 MCG/1 ML VIAL ONE
[2022-08-04 10:50] VITALS: BP 108/69
[2022-08-04 11:50] VITALS: BP 133/58
[2022-08-04 16:43] LABS: Calcium 9.8 mg/dL (8.5-10.1); Magnesium 2.8 mg/dL (1.6-2.6); Potassium 3.7 mmol/L (3.5-5.1)
[2022-08-04 16:46] LABS: BUN/Creatinine Ratio 23.3
== END | disposition home or self-care (01) ==
LOC: CHF HDHVI 10:43
PROVIDERS: ATTEND Internal Medicine
DX: I50.23 Acute on chronic systolic (congestive) heart failure (principal)
CPT/HCPCS: 36415; 71046; 80048; 83735; 83880; G0463

== ENCOUNTER → 2022-11-13 | Outpatient (CLI) | payer MEDICARE ==
[~2022-11-13] MED LIST changes: +CYANOCOBALAMIN (B-12) 1000 MCG/1 ML VIAL IM ONE; +CYANOCOBALAMIN (B-12) 1000 MCG/1 ML VIAL ONE; +FUROSEMIDE 40 MG/4 ML VIAL IV ONE; +FUROSEMIDE 40 MG/4 ML VIAL ONE; +POTASSIUM CHL 10 Meq TABLET PO ONE; +POTASSIUM CHL 20 Meq TABLET PO ONE
[2022-11-13 10:42] VITALS: BP 134/85
[2022-11-13 12:27] VITALS: BP 134/79
[2022-11-13 16:41] LABS: Albumin 3.6 g/dL (3.4-5.0); Calcium 9.3 mg/dL (8.5-10.1); Magnesium 2.1 mg/dL (1.6-2.6); Potassium 3.8 mmol/L (3.5-5.1)
[2022-11-13 16:44] LABS: BUN/Creatinine Ratio 18.9; Bilirubin, Total 0.5 mg/dL (0.2-1.0); Hematocrit 41.5 % (36.0-46.0); Hemoglobin 13.7 g/dL (12.2-16.2); Mean Corpuscular Hemoglobin 29.2 pg (28.0-32.0); Mean Corpuscular Hgb Conc. 33.1 g/dL (32.0-36.0); Mean Corpuscular Volume 88.3 fL (80.0-100.0); Red Blood Cells 4.69 10^6/uL (4.0-5.20); Red Cell Distribution Width 14.8 % (11.8-14.3); Total Protein 6.5 g/dL (6.4-8.2); White Blood Cell 11.3 10^3/uL (4.4-10.8)
[2022-11-13 16:50] LABS: Band Neutrophils % (manual) 0; Basophils % (manual) 0 (0.0-2.0); Blast Cells 0; Promyelocytes % 0; Reactive Lymphocytes 0
[2022-11-13 17:16] LABS: Eosinophils % (manual) 2 (0-7); Lymphocytes % (manual) 11 (10.0-50.0); Metamyelocytes % 1; Monocytes % (manual) 6 (0-12); Myelocytes % 1
== END | disposition home or self-care (01) ==
LOC: CHF HDHVI 10:42
PROVIDERS: ATTEND Internal Medicine Cardiovascular Disease
DX: I50.23 Acute on chronic systolic (congestive) heart failure (principal); I27.21 Secondary pulmonary arterial hypertension
CPT/HCPCS: 36415; 80053; 83735; 83880; 85007; 85027; 96372; 96374; G0463; J1940; J3420

== ENCOUNTER → 2022-12-08 | Outpatient (CLI) | payer MEDICARE ==
[~2022-12-08] VITALS: Ht 30.5 cm; Wt 0.5 kg
[~2022-12-08] MED LIST changes: +FUROSEMIDE 100 MG/10ML VIAL IV ONE; -FUROSEMIDE 40 MG/4 ML VIAL IV ONE; -POTASSIUM CHL 10 Meq TABLET PO ONE
[2022-12-08 13:45] VITALS: BP 137/81
[2022-12-08 15:06] VITALS: BP 140/77
== END | disposition home or self-care (01) ==
LOC: CHF HDHVI 13:39
PROVIDERS: ATTEND Internal Medicine
DX: I27.21 Secondary pulmonary arterial hypertension (principal); I50.23 Acute on chronic systolic (congestive) heart failure
CPT/HCPCS: 71046; 96372; 96374; G0463; J1940; J3420

== ENCOUNTER → 2022-12-14 | Outpatient (CLI) | payer MEDICARE ==
[~2022-12-14] MED LIST changes: -CYANOCOBALAMIN (B-12) 1000 MCG/1 ML VIAL IM ONE; -CYANOCOBALAMIN (B-12) 1000 MCG/1 ML VIAL ONE
[2022-12-14 11:48] VITALS: BP 124/76
[2022-12-14 12:05] VITALS: BP 131/83
== END | disposition home or self-care (01) ==
LOC: CHF HDHVI 11:50
PROVIDERS: ATTEND Internal Medicine Cardiovascular Disease
DX: I11.0 Hypertensive heart disease with heart failure (principal); I50.23 Acute on chronic systolic (congestive) heart failure; I25.10 Atherosclerotic heart disease of native coronary artery without angina pectoris; E78.5 Hyperlipidemia, unspecified
CPT/HCPCS: 96374; G0463; J1940

== ENCOUNTER → 2022-12-30 | Outpatient (CLI) | payer MEDICARE ==
[~2022-12-30] MED LIST changes: +CYANOCOBALAMIN (B-12) 1000 MCG/1 ML VIAL IM ONE; +CYANOCOBALAMIN (B-12) 1000 MCG/1 ML VIAL ONE; -FUROSEMIDE 100 MG/10ML VIAL IV ONE; -FUROSEMIDE 40 MG/4 ML VIAL ONE; -POTASSIUM CHL 20 Meq TABLET PO ONE
[2022-12-30 11:27] VITALS: BP 119/76
[2022-12-30 11:50] VITALS: BP 131/70
== END | disposition home or self-care (01) ==
LOC: CHF HDHVI 11:19
PROVIDERS: ATTEND Internal Medicine Cardiovascular Disease
DX: I27.21 Secondary pulmonary arterial hypertension (principal); D64.9 Anemia, unspecified; I11.0 Hypertensive heart disease with heart failure; I50.33 Acute on chronic diastolic (congestive) heart failure; I25.10 Atherosclerotic heart disease of native coronary artery without angina pectoris; J44.9 Chronic obstructive pulmonary disease, unspecified; E78.5 Hyperlipidemia, unspecified
CPT/HCPCS: 96372; G0463; J3420

== ENCOUNTER 2023-01-21 06:54 | Day surgery (SDC) | payer MEDICARE ==
[2023-01-18 12:06] LABS: Basophils # (auto) 0.1 10 ^3/uL (0-0.2); Basophils % (auto) 0.5 % (0.0-2.0); Eosinophils # (auto) 0.1 10 ^3/uL (0-0.8); Eosinophils % (auto) 1.1 % (0.0-7.0); Hematocrit 38.3 % (36.0-46.0); Hemoglobin 13.2 g/dL (12.2-16.2); Lymphocytes # (auto) 1.3 10 ^3/uL (0.4-5.4); Lymphocytes % (auto) 10.8 % (10.0-50.0); Mean Corpuscular Hemoglobin 28.4 pg (28.0-32.0); Mean Corpuscular Hgb Conc. 34.5 g/dL (32.0-36.0); Mean Corpuscular Volume 82.3 fL (80.0-100.0); Monocytes # (auto) 0.8 10 ^3/uL (0-1.3); Monocytes % (auto) 6.7 % (0.0-12.0); Neutrophils # (auto) 9.7 10 ^3/uL (1.6-8.6); Neutrophils % (auto) 80.9 % (37.0-80.0); Nucleated Red Blood Cells % 0.1 %; Red Blood Cells 4.65 10^6/uL (4.0-5.20); Red Cell Distribution Width 14.3 % (11.8-14.3)
[2023-01-18 12:26] LABS: INR 0.98 (0.9-1.15); Partial Thromboplastin Time 25.1 sec (24.6-33.4)
[2023-01-18 12:54] LABS: BUN/Creatinine Ratio 23.5 (10.0-20.0)
[2023-01-18 12:55] LABS: Calcium 11.2 mg/dL (8.5-10.1)
[~2023-01-21] VITALS: Ht 157.5 cm; Wt 58.5 kg
[2023-01-21] VITALS (7 sets, daily range): BP systolic 100–137; BP diastolic 36–90
[~2023-01-21 06:54] MED LIST changes: +ASCO500T11 PO; +B CO1TAB7 PO; -CHOL100055 PO; +CHOL50007 PO; +CYAN500T15 PO; -CYANOCOBALAMIN (B-12) 1000 MCG/1 ML VIAL IM ONE; -CYANOCOBALAMIN (B-12) 1000 MCG/1 ML VIAL ONE; +LACTCAP35 OR; +POM; +TIOTCAP IN; -TIOTCAP INH; +ZINC50TA7 PO
[2023-01-21] MEDS ORDERED: LIDOCAINE 2%HCL (LOCAL ANESTH.) INJ 20ML MDV ONE (10:20)
[2023-01-21] MEDS ORDERED: fentaNYL CITRATE 100 MCG/2 ML VL ONE (10:20)
[2023-01-21] MEDS ORDERED: MIDAZOLAM HCL 2MG/2ML 2ml VIAL (1mg/ml) ONE (10:20)
[2023-01-21] MEDS ORDERED: SODIUM CHL 0.9% 50 ML ONE (10:20)
[2023-01-21] MEDS ORDERED: ANGIOMAX 250 MG VIAL IV ONE (10:20)
[2023-01-21] MEDS ORDERED: IOHEXOL 350 MG/ML 100ML IJ ONE (10:21)
[2023-01-21] MEDS ORDERED: IODIXANOL 320MG/ML 100ML BTL IV ONE (10:58)
[2023-01-21] MEDS ORDERED: CLOPIDOGREL 300 MG TAB ONE (11:10)
[2023-01-21] MEDS ORDERED: POTASSIUM CHL 20 Meq TABLET PO ONE (11:45)
== END 2023-01-21 13:38 | disposition home or self-care (01) ==
LOC: CATH 06:54
PROVIDERS: ATTEND Internal Medicine Cardiovascular Disease
DX: I25.10 Atherosclerotic heart disease of native coronary artery without angina pectoris (principal); R07.89 Other chest pain; I27.20 Pulmonary hypertension, unspecified; I10 Essential (primary) hypertension; E78.5 Hyperlipidemia, unspecified; Z86.73 Personal history of transient ischemic attack (TIA), and cerebral infarction without residual deficits; Z79.899 Other long term (current) drug therapy
CPT/HCPCS: 36415; 80048; 85025; 85610; 85730; 92920; 92978; 93460; 93571; C1769; C1894; C9600; J0583; J1644; J2250; J3010; Q9967; 99152; 99153

== ENCOUNTER → 2023-03-12 | Outpatient (CLI) | payer MEDICARE ==
[~2023-03-12] MED LIST changes: -CYAN500T15 PO; +CYAN500T39 PO; -HYDR12.56 PO; +HYDR12.59 PO; +MONT5CHW12 PO; -MONT5CHW23 PO
== END | disposition home or self-care (01) ==
LOC: Rad HDHVI 10:05
PROVIDERS: ATTEND Internal Medicine Cardiovascular Disease
DX: I08.8 Other rheumatic multiple valve diseases (principal); I10 Essential (primary) hypertension; R00.2 Palpitations
CPT/HCPCS: 93306

== ENCOUNTER → 2023-03-31 | Outpatient (CLI) | payer MEDICARE ==
[~2023-03-31] MED LIST changes: +CYANOCOBALAMIN (B-12) 1000 MCG/1 ML VIAL IM ONE; +CYANOCOBALAMIN (B-12) 1000 MCG/1 ML VIAL ONE
[2023-03-31 14:20] VITALS: BP 143/56
[2023-03-31 15:15] VITALS: BP 127/54
== END | disposition home or self-care (01) ==
LOC: Rad HDHVI 15:08
PROVIDERS: ATTEND Internal Medicine Cardiovascular Disease
DX: I27.21 Secondary pulmonary arterial hypertension (principal); K76.0 Fatty (change of) liver, not elsewhere classified; K42.9 Umbilical hernia without obstruction or gangrene; I10 Essential (primary) hypertension; R63.4 Abnormal weight loss; D64.9 Anemia, unspecified
CPT/HCPCS: 74177; 96372; G0463; J3420; Q9967

== ENCOUNTER → 2023-04-28 | Outpatient (CLI) | payer MEDICARE ==
[~2023-04-28] MED LIST changes: +TESTOSTERONE CYPIONATE 200 MG/ML 1ML VIAL IM ONE
[2023-04-28 13:14] VITALS: BP 110/52; PULSE 65; RESP 18; O2SAT 98
[2023-04-28 14:24] VITALS: BP 128/61; PULSE 63; RESP 18; O2SAT 98
== END | disposition home or self-care (01) ==
LOC: CHF HDHVI 12:51
PROVIDERS: ATTEND Internal Medicine Cardiovascular Disease
DX: I27.21 Secondary pulmonary arterial hypertension (principal); D64.9 Anemia, unspecified; I10 Essential (primary) hypertension; R63.4 Abnormal weight loss; K76.0 Fatty (change of) liver, not elsewhere classified
CPT/HCPCS: 96372; G0463; J1071; J3420

== ENCOUNTER → 2023-05-25 | Outpatient (CLI) | payer MEDICARE ==
[~2023-05-25] MED LIST changes: -CYANOCOBALAMIN (B-12) 1000 MCG/1 ML VIAL IM ONE; -CYANOCOBALAMIN (B-12) 1000 MCG/1 ML VIAL ONE; -TESTOSTERONE CYPIONATE 200 MG/ML 1ML VIAL IM ONE
[2023-05-25 11:28] LABS: Basophils # (auto) 0 10 ^3/uL (0-0.2); Basophils % (auto) 0.4 % (0.0-2.0); Hemoglobin 13.6 g/dL (12.2-16.2); Neutrophils % (auto) 73.9 % (37.0-80.0); Red Cell Distribution Width 15.9 % (11.8-14.3)
[2023-05-25 11:30] LABS: Eosinophils # (auto) 0.6 10 ^3/uL (0-0.8); Eosinophils % (auto) 4.6 % (0.0-7.0); Hematocrit 42.2 % (36.0-46.0); Lymphocytes # (auto) 1.6 10 ^3/uL (0.4-5.4); Lymphocytes % (auto) 12.8 % (10.0-50.0); Mean Corpuscular Hemoglobin 25.3 pg (28.0-32.0); Mean Corpuscular Hgb Conc. 32.1 g/dL (32.0-36.0); Mean Corpuscular Volume 78.8 fL (80.0-100.0); Monocytes % (auto) 8.3 % (0.0-12.0); Red Blood Cells 5.36 10^6/uL (4.0-5.20); White Blood Cell 12.2 10^3/uL (4.4-10.8)
[2023-05-25 11:53] LABS: Urine Blood 3+ /uL (Negative); Urine Clarity HAZY (Clear); Urine Color Yellow (Yellow); Urine Protein, UAD TRACE (Negative); Urine Specific Gravity 1.011 (1.001-1.035); Urine Urobilinogen Normal (Negative); Urine pH 6.5 (5.0-8.0)
[2023-05-25 12:16] LABS: Alanine Aminotransferase 14 U/L (7-40); Albumin 4.5 g/dL (3.2-4.8); Alkaline Phosphatase 85 U/L (46-116); Anion Gap 10.3 (5-15); Aspartate Aminotransferase 28 U/L (13-40); BUN/Creatinine Ratio 23.5 (10.0-20.0); Blood Urea Nitrogen 27 mg/dL (9-23); Calcium 10.2 mg/dL (8.5-10.1); Carbon Dioxide 29.7 mmol/L (20-30); Chloride 98 mmol/L (98-107); Glucose 93 mg/dL (74-106); Potassium 3.5 mmol/L (3.5-5.1); Sodium 138 mmol/L (136-145)
[2023-05-25 12:17] LABS: Bilirubin, Total 0.8 mg/dL (0.2-1.0)
== END | disposition home or self-care (01) ==
LOC: LAB 10:56
PROVIDERS: ATTEND Internal Medicine Cardiovascular Disease
DX: I10 Essential (primary) hypertension (principal); I27.21 Secondary pulmonary arterial hypertension; D64.9 Anemia, unspecified; N39.0 Urinary tract infection, site not specified
CPT/HCPCS: 36415; 80053; 81003; 83735; 85025

== ENCOUNTER → 2023-05-28 | Outpatient (CLI) | payer MEDICARE ==
[~2023-05-28] MED LIST changes: +CYANOCOBALAMIN (B-12) 1000 MCG/1 ML VIAL IM ONE; +CYANOCOBALAMIN (B-12) 1000 MCG/1 ML VIAL ONE; +TESTOSTERONE CYPIONATE 200 MG/ML 1ML VIAL IM ONE
[2023-05-28 13:15] VITALS: BP 133/62; PULSE 71; RESP 18; O2SAT 99
[2023-05-28 14:15] VITALS: BP 124/63; PULSE 67; RESP 18; O2SAT 99
== END | disposition home or self-care (01) ==
LOC: CHF HDHVI 13:13
PROVIDERS: ATTEND Internal Medicine Cardiovascular Disease
DX: I27.21 Secondary pulmonary arterial hypertension (principal); R64 Cachexia; D64.9 Anemia, unspecified; I10 Essential (primary) hypertension
CPT/HCPCS: 96372; G0463; J1071; J3420

== ENCOUNTER 2023-06-18 10:06 | Inpatient (IN) | payer MEDICARE ==
[~2023-06-18] VITALS: Ht 154.9 cm; Wt 60.0 kg
[~2023-06-18 10:06] MED LIST changes: -CYANOCOBALAMIN (B-12) 1000 MCG/1 ML VIAL IM ONE; -CYANOCOBALAMIN (B-12) 1000 MCG/1 ML VIAL ONE; -TESTOSTERONE CYPIONATE 200 MG/ML 1ML VIAL IM ONE
[2023-06-18 11:20] LABS: Basophils # (auto) 0 10 ^3/uL (0-0.2); Eosinophils # (auto) 0.1 10 ^3/uL (0-0.8); Hemoglobin 12.2 g/dL (12.2-16.2); Mean Corpuscular Hemoglobin 25.4 pg (28.0-32.0)
[2023-06-18 11:23] LABS: Basophils % (auto) 0.2 % (0.0-2.0); Eosinophils % (auto) 0.9 % (0.0-7.0); Hematocrit 37.1 % (36.0-46.0); Lymphocytes # (auto) 0.8 10 ^3/uL (0.4-5.4); Lymphocytes % (auto) 6.9 % (10.0-50.0); Mean Corpuscular Hgb Conc. 32.8 g/dL (32.0-36.0); Mean Corpuscular Volume 77.4 fL (80.0-100.0); Monocytes # (auto) 0.7 10 ^3/uL (0-1.3); Monocytes % (auto) 5.7 % (0.0-12.0); Neutrophils # (auto) 10.7 10 ^3/uL (1.6-8.6); Neutrophils % (auto) 86.3 % (37.0-80.0); Nucleated Red Blood Cells % 0.1 %; Red Cell Distribution Width 16.3 % (11.8-14.3); White Blood Cell 12.4 10^3/uL (4.4-10.8)
[2023-06-18 11:57] LABS: Alanine Aminotransferase 11 U/L (7-40); Albumin 4.1 g/dL (3.2-4.8); Alkaline Phosphatase 70 U/L (46-116); Anion Gap 6 (5-15); Aspartate Aminotransferase 25 U/L (13-40); BUN/Creatinine Ratio 15.4 (10.0-20.0); Blood Urea Nitrogen 16 mg/dL (9-23); Calcium 9.9 mg/dL (8.5-10.1); Carbon Dioxide 31 mmol/L (20-30); Chloride 103 mmol/L (98-107); Glucose 121 mg/dL (74-106); Potassium 3.8 mmol/L (3.5-5.1); Sodium 140 mmol/L (136-145)
[2023-06-18 11:58] LABS: Bilirubin, Total 0.8 mg/dL (0.2-1.0); Total Protein 6.7 g/dL (5.7-8.2)
[2023-06-18] MEDS ORDERED: MORPHINE SULFATE 4 MG/ML SYR/VIAL IV ONE (13:45)
[2023-06-18] MEDS ORDERED: ONDANSETRON HCL 4 MG/2 ML VIAL IV ONE (13:45)
[2023-06-18 13:46] LABS: Erythrocyte Sedimentation Rate 2 mm/hr (0-20)
[2023-06-18 14:15] VITALS: PULSE 78; RESP 20; O2SAT 96
[2023-06-18] MEDS ORDERED: ALBUTEROL SULF 2.5 MG/0.5ML(0.5%) NEB SOLN NEB PRN (16:45)
[2023-06-18] MEDS ORDERED: ONDANSETRON HCL 4 MG/2 ML VIAL IV PRN (16:45)
[2023-06-18] MEDS ORDERED: IPRATROPIUM BROM 0.5 MG/2.5ML INH SOL NEB PRN (16:45)
[2023-06-18] MEDS ORDERED: DOCUSATE SOD 100 MG CAP PO PRN (16:45)
[2023-06-18] MEDS ORDERED: TEMAZEPAM 15 MG CAP PO PRN (16:45)
[2023-06-18 17:33] LABS: INR 1.02 (0.9-1.15); Prothrombin Time 10.7 sec (9.3-11.8)
[2023-06-18 17:39] VITALS: BP 124/69; PULSE 87; RESP 18; TEMP 97.8; O2SAT 92
[2023-06-18] MEDS: ENOXAPARIN SOD 40 MG/0.4 ML SYRINGE SC SCH (18:35)
[2023-06-18] MEDS: ATENOLOL 25 MG TAB PO SCH (18:43)
[2023-06-18 21:27] VITALS: PULSE 82; RESP 21; O2SAT 93
[2023-06-18] MEDS: Fluticasone-Salmeterol (Advair Diskus 250/50) IN SCH (22:00)
[2023-06-18] MEDS: MORPHINE SULFATE INJ 2 MG/ml SYRG IV PRN (23:50)
[2023-06-19] VITALS (7 sets, daily range): BP systolic 97–149; BP diastolic 47–67; PULSE 56–82; RESP 13–20; TEMP 97.5–98; O2SAT 92–100
[2023-06-19 05:10] LABS: Basophils # (auto) 0 10 ^3/uL (0-0.2); Basophils % (auto) 0.2 % (0.0-2.0); Eosinophils # (auto) 0 10 ^3/uL (0-0.8); Eosinophils % (auto) 0.1 % (0.0-7.0); Monocytes # (auto) 1.1 10 ^3/uL (0-1.3)
[2023-06-19 05:13] LABS: Hematocrit 37.4 % (36.0-46.0); Hemoglobin 12.3 g/dL (12.2-16.2); Lymphocytes # (auto) 0.9 10 ^3/uL (0.4-5.4); Lymphocytes % (auto) 6.5 % (10.0-50.0); Mean Corpuscular Hemoglobin 25.6 pg (28.0-32.0); Mean Corpuscular Hgb Conc. 32.8 g/dL (32.0-36.0); Mean Corpuscular Volume 78.1 fL (80.0-100.0); Monocytes % (auto) 7.9 % (0.0-12.0); Neutrophils # (auto) 11.7 10 ^3/uL (1.6-8.6); Neutrophils % (auto) 85.3 % (37.0-80.0); Red Blood Cells 4.78 10^6/uL (4.0-5.20); Red Cell Distribution Width 15.9 % (11.8-14.3); White Blood Cell 13.8 10^3/uL (4.4-10.8)
[2023-06-19 05:23] LABS: Alanine Aminotransferase 13 U/L (7-40); Alkaline Phosphatase 73 U/L (46-116); Anion Gap 7 (5-15); Aspartate Aminotransferase 24 U/L (13-40); BUN/Creatinine Ratio 14.9 (10.0-20.0); Blood Urea Nitrogen 17 mg/dL (9-23); Calcium 9.9 mg/dL (8.7-10.4); Carbon Dioxide 31 mmol/L (20-30); Chloride 103 mmol/L (98-107); Glucose 105 mg/dL (74-106); Potassium 4.3 mmol/L (3.5-5.1); Sodium 141 mmol/L (136-145)
[2023-06-19 05:24] LABS: Bilirubin, Total 0.9 mg/dL (0.2-1.0); Total Protein 6.4 g/dL (5.7-8.2)
[2023-06-19] MEDS: LEVOTHYROXINE SODIUM 50 MCG TAB PO SCH (06:37)
[2023-06-19] MEDS: MORPHINE SULFATE INJ 2 MG/ml SYRG IV PRN ×2 (06:43→15:12)
[2023-06-19] MEDS: HCTZ 25 MG TAB PO SCH (10:00)
[2023-06-19] MEDS: CLOPIDOGREL BISULFATE 75 MG TAB PO SCH (10:00)
[2023-06-19] MEDS: Fluticasone-Salmeterol (Advair Diskus 250/50) IN SCH ×2 (10:00→21:58)
[2023-06-19] MEDS: MULTIPLE VITAMINS W/ MINERALS TAB PO SCH (11:13)
[2023-06-19] MEDS: CALCIUM ACETATE 667 MG CAP PO SCH (11:14)
[2023-06-19] MEDS: CYANOCOBALAMIN 500 MCG TAB PO SCH (11:14)
[2023-06-19] MEDS: ASCORBIC ACID 500 MG TAB PO SCH (11:14)
[2023-06-19] MEDS: ENOXAPARIN SOD 40 MG/0.4 ML SYRINGE SC SCH (11:15)
[2023-06-19] MEDS: CHOLECALCIFEROL (VITD3) 1,000UNIT=25mCg TAB PO SCH (11:15)
[2023-06-19] MEDS: [UNRECOGNIZED DRUG - OTHER] PO SCH (11:34)
[2023-06-19] MEDS: B COMPLEX PO SCH (11:34)
[2023-06-19] MEDS ORDERED: cefTRIAXone 1GM/50ML D5W 50 ML IV ONE (14:30)
[2023-06-19 15:31] LABS: Creatinine, Urine 117.27 mg/dL (30.0-125.0)
[2023-06-19 15:32] LABS: Urine Bacteria FEW /hpf (None Seen); Urine Blood 2+ /uL (Negative); Urine Clarity Clear (Clear); Urine Color Yellow (Yellow); Urine Mucus FEW (None Seen); Urine Protein, UAD 1+ (Negative); Urine Specific Gravity 1.022 (1.001-1.035); Urine Urobilinogen Normal (Negative); Urine WBC 14 /hpf (0 - 5)
[2023-06-19] MEDS: ATENOLOL 25 MG TAB PO SCH (18:25)
[2023-06-20] VITALS (7 sets, daily range): BP systolic 91–137; BP diastolic 35–58; PULSE 42–80; RESP 16–20; TEMP 97.7–98.4; O2SAT 94–100
[2023-06-20] MEDS: LEVOTHYROXINE SODIUM 50 MCG TAB PO SCH (06:44)
[2023-06-20] MEDS: CALCIUM ACETATE 667 MG CAP PO SCH (09:09)
[2023-06-20] MEDS: cefTRIAXone 1GM/50ML D5W 50 ML IV SCH (09:09)
[2023-06-20] MEDS: ENOXAPARIN SOD 30 MG/0.3 ML SYRINGE SC SCH (09:09)
[2023-06-20] MEDS: ASCORBIC ACID 500 MG TAB PO SCH (09:09)
[2023-06-20] MEDS: CHOLECALCIFEROL (VITD3) 1,000UNIT=25mCg TAB PO SCH (09:10)
[2023-06-20] MEDS: CYANOCOBALAMIN 500 MCG TAB PO SCH (09:10)
[2023-06-20] MEDS: MULTIPLE VITAMINS W/ MINERALS TAB PO SCH (09:10)
[2023-06-20] MEDS: CLOPIDOGREL BISULFATE 75 MG TAB PO SCH (09:10)
[2023-06-20] MEDS: Fluticasone-Salmeterol (Advair Diskus 250/50) IN SCH ×2 (09:11→22:00)
[2023-06-20] MEDS: HCTZ 25 MG TAB PO SCH (09:11)
[2023-06-20] MEDS: B COMPLEX PO SCH (09:21)
[2023-06-20] MEDS: [UNRECOGNIZED DRUG - OTHER] PO SCH (09:21)
[2023-06-20] MEDS: ATENOLOL 25 MG TAB PO SCH (17:17)
[2023-06-21] VITALS (11 sets, daily range): BP systolic 107–122; BP diastolic 51–65; PULSE 55–75; RESP 16–20; TEMP 97.6–98.5; O2SAT 95–99
[2023-06-21] MEDS: LEVOTHYROXINE SODIUM 50 MCG TAB PO SCH (06:06)
[2023-06-21] MEDS: MORPHINE SULFATE INJ 2 MG/ml SYRG IV PRN (06:48)
[2023-06-21] MEDS: cefTRIAXone 1GM/50ML D5W 50 ML IV SCH (08:51)
[2023-06-21] MEDS: CALCIUM ACETATE 667 MG CAP PO SCH (08:51)
[2023-06-21] MEDS: CLOPIDOGREL BISULFATE 75 MG TAB PO SCH (08:51)
[2023-06-21] MEDS: ENOXAPARIN SOD 30 MG/0.3 ML SYRINGE SC SCH (08:51)
[2023-06-21] MEDS: CYANOCOBALAMIN 500 MCG TAB PO SCH (08:51)
[2023-06-21] MEDS: MULTIPLE VITAMINS W/ MINERALS TAB PO SCH (08:51)
[2023-06-21] MEDS: HCTZ 25 MG TAB PO SCH (08:52)
[2023-06-21] MEDS: ASCORBIC ACID 500 MG TAB PO SCH (08:52)
[2023-06-21] MEDS: CHOLECALCIFEROL (VITD3) 1,000UNIT=25mCg TAB PO SCH (08:52)
[2023-06-21] MEDS: B COMPLEX PO SCH (08:53)
[2023-06-21] MEDS: Fluticasone-Salmeterol (Advair Diskus 250/50) IN SCH ×2 (08:53→22:00)
[2023-06-21] MEDS: [UNRECOGNIZED DRUG - OTHER] PO SCH (08:53)
[2023-06-21 16:06] LABS: COVID19 ANTIGEN SOFIA FIA NEGATIVE (NEGATIVE)
[2023-06-21] MEDS: ATENOLOL 25 MG TAB PO SCH (18:21)
[2023-06-22] VITALS (9 sets, daily range): BP systolic 119–138; BP diastolic 53–75; PULSE 57–72; RESP 16–20; TEMP 97.9–98.7; O2SAT 95–100
[2023-06-22] MEDS: MORPHINE SULFATE INJ 2 MG/ml SYRG IV PRN (03:42)
[2023-06-22] MEDS: LEVOTHYROXINE SODIUM 50 MCG TAB PO SCH (06:02)
[2023-06-22] MEDS: HCTZ 25 MG TAB PO SCH (09:27)
[2023-06-22] MEDS: CLOPIDOGREL BISULFATE 75 MG TAB PO SCH (09:27)
[2023-06-22] MEDS: cefTRIAXone 1GM/50ML D5W 50 ML IV SCH (09:27)
[2023-06-22] MEDS: CHOLECALCIFEROL (VITD3) 1,000UNIT=25mCg TAB PO SCH (09:27)
[2023-06-22] MEDS: CALCIUM ACETATE 667 MG CAP PO SCH (09:27)
[2023-06-22] MEDS: ASCORBIC ACID 500 MG TAB PO SCH (09:27)
[2023-06-22] MEDS: MULTIPLE VITAMINS W/ MINERALS TAB PO SCH (09:27)
[2023-06-22] MEDS: CYANOCOBALAMIN 500 MCG TAB PO SCH (09:27)
[2023-06-22] MEDS: ENOXAPARIN SOD 30 MG/0.3 ML SYRINGE SC SCH (09:28)
[2023-06-22] MEDS: [UNRECOGNIZED DRUG - OTHER] PO SCH (09:28)
[2023-06-22] MEDS: Fluticasone-Salmeterol (Advair Diskus 250/50) IN SCH (09:28)
[2023-06-22] MEDS: B COMPLEX PO SCH (09:28)
[2023-06-22] MEDS: ATENOLOL 25 MG TAB PO SCH (18:10)
== END 2023-06-22 20:00 | DRG 536 ==
LOC: EDBD 10:06 → ER 10:06 → OVERFLOW 16:43 → WEST WING 22:51 → OVERFLOW 23:49 → WEST WING 06-19 14:15
PROVIDERS: ADMIT Nurse Practitioner Family; ATTEND Family Medicine
DX: S72.122A Displaced fracture of lesser trochanter of left femur, initial encounter for closed fracture (principal); J44.1 Chronic obstructive pulmonary disease with (acute) exacerbation; N17.9 Acute kidney failure, unspecified; N39.0 Urinary tract infection, site not specified; Z74.01 Bed confinement status; W07.XXXA Fall from chair, initial encounter; D72.829 Elevated white blood cell count, unspecified; E03.9 Hypothyroidism, unspecified; Z96.643 Presence of artificial hip joint, bilateral; Z60.2 Problems related to living alone; Z20.822 Contact with and (suspected) exposure to COVID-19; I11.0 Hypertensive heart disease with heart failure; I25.10 Atherosclerotic heart disease of native coronary artery without angina pectoris; I48.91 Unspecified atrial fibrillation; I50.9 Heart failure, unspecified; Z82.49 Family history of ischemic heart disease and other diseases of the circulatory system; Z88.6 Allergy status to analgesic agent; Z90.49 Acquired absence of other specified parts of digestive tract; Z91.81 History of falling; Z95.1 Presence of aortocoronary bypass graft; Y93.89 Activity, other specified; Y92.098 Other place in other non-institutional residence as the place of occurrence of the external cause; Y99.8 Other external cause status
CPT/HCPCS: 36415; 72170; 73700; 78306; 80053; 81001; 82570; 84300; 85025; 85610; 85652; 86850; 86900; 86901; 87086; 87426; 93005; 93971; 97110; 97116; 97163; 97530; G0378; J0696; J2405

== ENCOUNTER → 2023-11-17 | Outpatient (CLI) | payer MEDICARE | END | disposition home or self-care (01) | LOC: Rad HDHVI 08:52 | PROVIDERS: ATTEND Internal Medicine Cardiovascular Disease | DX: I08.8 Other rheumatic multiple valve diseases (principal); I10 Essential (primary) hypertension; E78.5 Hyperlipidemia, unspecified | CPT/HCPCS: 93306 ==

== ENCOUNTER → 2023-11-23 | Outpatient (CLI) | payer MEDICARE ==
[~2023-11-23] VITALS: Ht 165.1 cm; Wt 60.8 kg
[~2023-11-23] MED LIST changes: +ADENOSINE 51 MG in GIVE UN-DILUTED 0 ML IV ONE; +ADENOSINE 90 MG/30 ML INJ IV ONE
== END | disposition home or self-care (01) ==
LOC: Rad HDHVI 12:26
PROVIDERS: ATTEND Internal Medicine Cardiovascular Disease
DX: I11.0 Hypertensive heart disease with heart failure (principal); I50.33 Acute on chronic diastolic (congestive) heart failure; I25.10 Atherosclerotic heart disease of native coronary artery without angina pectoris; I27.21 Secondary pulmonary arterial hypertension; E78.00 Pure hypercholesterolemia, unspecified; I11.9 Hypertensive heart disease without heart failure; Z82.49 Family history of ischemic heart disease and other diseases of the circulatory system; Z79.899 Other long term (current) drug therapy
CPT/HCPCS: 78452; 93005; 96374; 96375; A9500; J0153

== ENCOUNTER 2024-02-04 11:51 | Emergency (ER) | payer MEDICARE, MEDICAID ==
[~2024-02-04] VITALS: Ht 165.1 cm; Wt 44.0 kg
[~2024-02-04 11:51] MED LIST changes: -ADENOSINE 51 MG in GIVE UN-DILUTED 0 ML IV ONE; -ADENOSINE 90 MG/30 ML INJ IV ONE; +POTA-215 PO; -POTA1TAB61 PO; +SILD50TA PO; -SILD50TA42 PO
[2024-02-04 13:26] LABS: Basophils # (auto) 0 10 ^3/uL (0-0.2); Basophils % (auto) 0.4 % (0.0-2.0); Eosinophils # (auto) 0.1 10 ^3/uL (0-0.8); Eosinophils % (auto) 0.6 % (0.0-7.0); Hematocrit 44.3 % (36.0-46.0); Lymphocytes # (auto) 1.6 10 ^3/uL (0.4-5.4); Lymphocytes % (auto) 17.3 % (10.0-50.0); Mean Corpuscular Hemoglobin 24.7 pg (28.0-32.0); Mean Corpuscular Hgb Conc. 31.5 g/dL (32.0-36.0); Mean Corpuscular Volume 78.5 fL (80.0-100.0); Monocytes % (auto) 10.9 % (0.0-12.0); Neutrophils # (auto) 6.6 10 ^3/uL (1.6-8.6); Neutrophils % (auto) 70.8 % (37.0-80.0); Nucleated Red Blood Cells % 0.2 %; Red Blood Cells 5.65 10^6/uL (4.0-5.20); White Blood Cell 9.4 10^3/uL (4.4-10.8)
[2024-02-04 13:43] LABS: Alanine Aminotransferase 19 U/L (7-40); Albumin 4.7 g/dL (3.2-4.8); Alkaline Phosphatase 89 U/L (46-116); Anion Gap 10 (5-15); Aspartate Aminotransferase 43 U/L (13-40); BUN/Creatinine Ratio 27.5 (10.0-20.0); Bilirubin, Total 0.6 mg/dL (0.2-1.0); Blood Urea Nitrogen 33 mg/dL (9-23); Calcium 10.6 mg/dL (8.5-10.1); Carbon Dioxide 23 mmol/L (20-30); Chloride 101 mmol/L (98-107); Glucose 76 mg/dL (74-106); Potassium 4.2 mmol/L (3.5-5.1); Sodium 134 mmol/L (136-145); Total Protein 7.3 g/dL (5.7-8.2)
[2024-02-04 13:51] LABS: Urine Blood 3+ /uL (Negative); Urine Clarity Turbid (Clear); Urine Color Yellow (Yellow); Urine Protein, UAD TRACE (Negative); Urine Specific Gravity 1.011 (1.001-1.035); Urine Urobilinogen Normal (Negative)
[2024-02-04] MEDS ORDERED: CEPH250C PO (14:01)
[2024-02-04 14:35] VITALS: BP 126/70; PULSE 108; RESP 16; TEMP 98; O2SAT 98
== END 2024-02-04 14:38 | disposition home or self-care (01) ==
LOC: ER 11:51
DX: N39.0 Urinary tract infection, site not specified (principal); R31.9 Hematuria, unspecified; R53.1 Weakness; R63.0 Anorexia; I11.0 Hypertensive heart disease with heart failure; I50.9 Heart failure, unspecified; I25.10 Atherosclerotic heart disease of native coronary artery without angina pectoris; J44.9 Chronic obstructive pulmonary disease, unspecified; E03.9 Hypothyroidism, unspecified; Z95.1 Presence of aortocoronary bypass graft; Z90.49 Acquired absence of other specified parts of digestive tract; Z90.89 Acquired absence of other organs; Z79.01 Long term (current) use of anticoagulants; Z79.899 Other long term (current) drug therapy; Z88.8 Allergy status to other drugs, medicaments and biological substances; Z91.048 Other nonmedicinal substance allergy status
CPT/HCPCS: 36415; 80053; 81003; 85025

== ENCOUNTER 2024-02-16 10:34 | Inpatient (IN) | payer MEDICARE, MEDICAID ==
[~2024-02-16] VITALS: Ht 165.1 cm; Wt 102.7 kg
[~2024-02-16 10:34] MED LIST changes: +CEPH250C PO
[2024-02-16 10:57] LABS: Basophils # (auto) 0.1 10 ^3/uL (0-0.2); Basophils % (auto) 0.6 % (0.0-2.0); Eosinophils # (auto) 0.2 10 ^3/uL (0-0.8); Eosinophils % (auto) 1.4 % (0.0-7.0); Hematocrit 41.4 % (36.0-46.0); Hemoglobin 13.4 g/dL (12.2-16.2); Lymphocytes # (auto) 1.1 10 ^3/uL (0.4-5.4); Lymphocytes % (auto) 7.4 % (10.0-50.0); Mean Corpuscular Hemoglobin 25.2 pg (28.0-32.0); Mean Corpuscular Hgb Conc. 32.5 g/dL (32.0-36.0); Mean Corpuscular Volume 77.5 fL (80.0-100.0); Monocytes # (auto) 0.9 10 ^3/uL (0-1.3); Monocytes % (auto) 6.5 % (0.0-12.0); Neutrophils # (auto) 12.3 10 ^3/uL (1.6-8.6); Neutrophils % (auto) 84.1 % (37.0-80.0); Red Blood Cells 5.34 10^6/uL (4.0-5.20); White Blood Cell 14.6 10^3/uL (4.4-10.8)
[2024-02-16 11:07] LABS: Anion Gap 6 (5-15); Carbon Dioxide 31 mmol/L (20-30); Chloride 99 mmol/L (98-107); Potassium 3.8 mmol/L (3.5-5.1); Sodium 136 mmol/L (136-145)
[2024-02-16 11:08] LABS: Calcium 10.2 mg/dL (8.5-10.1)
[2024-02-16 11:13] LABS: BUN/Creatinine Ratio 22.9 (10.0-20.0); Blood Urea Nitrogen 25 mg/dL (9-23); Glucose 96 mg/dL (74-106)
[2024-02-16] MEDS ORDERED: DOCUSATE SOD 100 MG CAP PO PRN (12:15)
[2024-02-16] MEDS ORDERED: MORPHINE SULFATE INJ 2 MG/ml SYRG IV PRN (12:15)
[2024-02-16] MEDS: SODIUM CHLORIDE 0.9% 1,000 ML IV SCH (12:15)
[2024-02-16 13:16] LABS: Phosphorus 2.6 mg/dL (2.4-5.1)
[2024-02-16 14:58] VITALS: PULSE 68; RESP 20; O2SAT 96
[2024-02-16 23:02] LABS: Hematocrit 43.4 % (36.0-46.0); Hemoglobin 13.8 g/dL (12.2-16.2)
[2024-02-16 23:46] VITALS: BP 113/73; PULSE 103; RESP 18; TEMP 97.7; O2SAT 96
[2024-02-17] VITALS (8 sets, daily range): BP systolic 102–130; BP diastolic 51–79; PULSE 83–109; RESP 16–18; TEMP 97.6–98.2; O2SAT 97–99
[2024-02-17 06:52] LABS: Basophils # (auto) 0 10 ^3/uL (0-0.2); Eosinophils # (auto) 0.1 10 ^3/uL (0-0.8); Eosinophils % (auto) 0.4 % (0.0-7.0); Lymphocytes # (auto) 1.4 10 ^3/uL (0.4-5.4); Mean Corpuscular Hgb Conc. 32.2 g/dL (32.0-36.0); Nucleated Red Blood Cells % 0.1 %
[2024-02-17 06:55] LABS: Basophils % (auto) 0.1 % (0.0-2.0); Hematocrit 39.8 % (36.0-46.0); Hemoglobin 12.8 g/dL (12.2-16.2); Lymphocytes % (auto) 8.4 % (10.0-50.0); Mean Corpuscular Volume 77.6 fL (80.0-100.0); Monocytes % (auto) 5.9 % (0.0-12.0); Neutrophils % (auto) 85.2 % (37.0-80.0); Red Blood Cells 5.12 10^6/uL (4.0-5.20); White Blood Cell 16.5 10^3/uL (4.4-10.8)
[2024-02-17 07:14] LABS: Albumin 3.3 g/dL (3.2-4.8); Alkaline Phosphatase 60 U/L (46-116); Anion Gap 8 (5-15); Aspartate Aminotransferase 23 U/L (13-40); BUN/Creatinine Ratio 34.4 (10.0-20.0); Blood Urea Nitrogen 32 mg/dL (9-23); Calcium 9.2 mg/dL (8.7-10.4); Carbon Dioxide 26 mmol/L (20-30); Chloride 99 mmol/L (98-107); Glucose 111 mg/dL (74-106); Potassium 3.3 mmol/L (3.5-5.1); Sodium 133 mmol/L (136-145)
[2024-02-17 07:15] LABS: Bilirubin, Total 0.7 mg/dL (0.2-1.0); Total Protein 5.7 g/dL (5.7-8.2)
[2024-02-17 07:20] LABS: Alanine Aminotransferase < 9 U/L (7-40)
[2024-02-17 11:10] LABS: Hemoglobin 13.2 g/dL (12.2-16.2)
[2024-02-17 11:11] LABS: Hematocrit 41.4 % (36.0-46.0)
[2024-02-17] MEDS: POTASSIUM CHL 20 Meq TABLET PO ONE (12:47)
[2024-02-17] MEDS: cefTRIAXone 1GM/50ML D5W 50 ML IV ONE (12:48)
[2024-02-17] MEDS ORDERED: POTA-220 PO (14:57)
[2024-02-17] MEDS ORDERED: PANT40TA2 PO (14:57)
[2024-02-17] MEDS ORDERED: SPIR25TA8 PO (14:57)
[2024-02-17] MEDS ORDERED: FURO40TA4 PO (14:57)
[2024-02-17] MEDS ORDERED: MEGE40TA4 PO (14:57)
[2024-02-17] MEDS: GADOTERATE MEG 10 MMOL/20ml INJ (0.5MMOL/ml) IV ONE (18:11)
[2024-02-17 22:27] LABS: Hematocrit 39.2 % (36.0-46.0); Hemoglobin 12.3 g/dL (12.2-16.2)
[2024-02-17] MEDS: MONTELUKAST SODIUM 10 MG TAB PO SCH (22:29)
[2024-02-18] VITALS (7 sets, daily range): BP systolic 102–117; BP diastolic 44–72; PULSE 77–97; RESP 16–19; TEMP 97.8–98.1; O2SAT 95–98
[2024-02-18] MEDS: LEVOTHYROXINE SODIUM 50 MCG TAB PO SCH (06:02)
[2024-02-18] MEDS: cefTRIAXone 1GM/50ML D5W 50 ML IV SCH (08:32)
[2024-02-18] MEDS: ONDANSETRON HCL 4 MG/2 ML VIAL IV PRN (09:31)
[2024-02-18 10:49] LABS: Basophils # (auto) 0 10 ^3/uL (0-0.2); Eosinophils # (auto) 0.1 10 ^3/uL (0-0.8); Hematocrit 42.4 % (36.0-46.0); Hemoglobin 13.3 g/dL (12.2-16.2); Mean Corpuscular Hemoglobin 24.9 pg (28.0-32.0)
[2024-02-18 10:51] LABS: Basophils % (auto) 0.2 % (0.0-2.0); Eosinophils % (auto) 0.7 % (0.0-7.0); Lymphocytes # (auto) 1.1 10 ^3/uL (0.4-5.4); Lymphocytes % (auto) 6.8 % (10.0-50.0); Mean Corpuscular Hgb Conc. 31.3 g/dL (32.0-36.0); Mean Corpuscular Volume 79.6 fL (80.0-100.0); Monocytes # (auto) 0.9 10 ^3/uL (0-1.3); Monocytes % (auto) 5.8 % (0.0-12.0); Neutrophils # (auto) 14.2 10 ^3/uL (1.6-8.6); Neutrophils % (auto) 86.5 % (37.0-80.0); Red Blood Cells 5.33 10^6/uL (4.0-5.20); Red Cell Distribution Width 18.1 % (11.8-14.3); White Blood Cell 16.4 10^3/uL (4.4-10.8)
[2024-02-18 10:54] LABS: INR 1.07 (0.9-1.15); Partial Thromboplastin Time 23.1 SEC (24.5-34.5); Prothrombin Time 11.3 sec (9.3-11.8)
[2024-02-18 11:22] LABS: Chloride 107 mmol/L (98-107); Potassium 3.8 mmol/L (3.5-5.1)
[2024-02-18 11:23] LABS: Anion Gap 8 (5-15); Calcium 9.5 mg/dL (8.5-10.1); Carbon Dioxide 23 mmol/L (20-30)
[2024-02-18 11:28] LABS: BUN/Creatinine Ratio 18.8 (10.0-20.0); Blood Urea Nitrogen 16 mg/dL (9-23); Glucose 120 mg/dL (74-106)
[2024-02-18 11:29] LABS: Sodium 138 mmol/L (136-145)
[2024-02-19 08:00] VITALS: PULSE 86
[2024-02-19 09:20] VITALS: BP 90/42; PULSE 91; RESP 18; TEMP 97.3; O2SAT 99
[2024-02-19 12:57] VITALS: BP 94/43; PULSE 96; RESP 17; TEMP 98; O2SAT 93
[2024-02-19 17:19] VITALS: BP 109/49; PULSE 78; RESP 19; TEMP 97.8; O2SAT 96
[2024-02-19 20:00] VITALS: PULSE 108
[2024-02-19 21:00] VITALS: BP 123/55; PULSE 111; RESP 20; TEMP 97.6; O2SAT 97
[2024-02-20] VITALS (8 sets, daily range): BP systolic 106–131; BP diastolic 58–76; PULSE 61–103; RESP 16–20; TEMP 97.2–98.1; O2SAT 95–98
[2024-02-20] MEDS: METOPROLOL TARTRATE 1MG/1ML-5ML VIAL IV ONE (16:35)
[2024-02-20 16:37] LABS: Basophils # (auto) 0.1 10 ^3/uL (0-0.2); Hemoglobin 14.9 g/dL (12.2-16.2)
[2024-02-20 16:39] LABS: Basophils % (auto) 0.3 % (0.0-2.0); Eosinophils # (auto) 0.2 10 ^3/uL (0-0.8); Eosinophils % (auto) 1.3 % (0.0-7.0); Hematocrit 47.1 % (36.0-46.0); Lymphocytes # (auto) 1.9 10 ^3/uL (0.4-5.4); Lymphocytes % (auto) 10.7 % (10.0-50.0); Mean Corpuscular Hemoglobin 25.4 pg (28.0-32.0); Mean Corpuscular Hgb Conc. 31.6 g/dL (32.0-36.0); Mean Corpuscular Volume 80.2 fL (80.0-100.0); Monocytes # (auto) 1.4 10 ^3/uL (0-1.3); Monocytes % (auto) 7.8 % (0.0-12.0); Neutrophils % (auto) 79.9 % (37.0-80.0); Nucleated Red Blood Cells % 0.2 %; Red Blood Cells 5.87 10^6/uL (4.0-5.20); Red Cell Distribution Width 18.5 % (11.8-14.3); White Blood Cell 17.5 10^3/uL (4.4-10.8)
[2024-02-20 16:55] LABS: Alanine Aminotransferase 12 U/L (7-40); Albumin 2.9 g/dL (3.2-4.8); Alkaline Phosphatase 49 U/L (46-116); Anion Gap 9 (5-15); Aspartate Aminotransferase 32 U/L (13-40); BUN/Creatinine Ratio 22.5 (10.0-20.0); Bilirubin, Total 0.4 mg/dL (0.2-1.0); Blood Urea Nitrogen 18 mg/dL (9-23); Calcium 9.2 mg/dL (8.7-10.4); Carbon Dioxide 19 mmol/L (20-30); Chloride 110 mmol/L (98-107); Glucose 93 mg/dL (74-106); Magnesium 1.8 mg/dL (1.6-2.6); Potassium 3.6 mmol/L (3.5-5.1); Sodium 138 mmol/L (136-145)
[2024-02-20 20:53] LABS: Urine Bacteria FEW /hpf (None Seen); Urine Blood 2+ /uL (Negative); Urine Budding Yeast OCCASIONAL /hpf (None Seen); Urine Clarity Turbid (Clear); Urine Color Light-Yellow (Yellow); Urine Hyaline Cast MANY /lpf (0 - 2); Urine Mucus FEW (None Seen); Urine Protein, UAD TRACE (Negative); Urine Specific Gravity 1.022 (1.001-1.035); Urine Urobilinogen Normal (Negative); Urine WBC 106 /hpf (0 - 5); Urine pH 5.5 (5.0-9.0)
[2024-02-21] VITALS (8 sets, daily range): BP systolic 106–127; BP diastolic 47–80; PULSE 57–126; RESP 17–20; TEMP 97.6–98.7; O2SAT 94–99
[2024-02-21 10:26] LABS: Hematocrit 44.5 % (36.0-46.0); Hemoglobin 14.4 g/dL (12.2-16.2); Mean Corpuscular Hemoglobin 25.3 pg (28.0-32.0); Mean Corpuscular Hgb Conc. 32.3 g/dL (32.0-36.0); Mean Corpuscular Volume 78.3 fL (80.0-100.0); Red Blood Cells 5.68 10^6/uL (4.0-5.20); White Blood Cell 20.1 10^3/uL (4.4-10.8)
[2024-02-21 10:29] LABS: Alanine Aminotransferase 12 U/L (7-40); Albumin 2.9 g/dL (3.2-4.8); Alkaline Phosphatase 48 U/L (46-116); Anion Gap 8 (5-15); Aspartate Aminotransferase 33 U/L (13-40); BUN/Creatinine Ratio 20.3 (10.0-20.0); Bilirubin, Total 0.4 mg/dL (0.2-1.0); Blood Urea Nitrogen 16 mg/dL (9-23); Calcium 8.9 mg/dL (8.5-10.1); Carbon Dioxide 18 mmol/L (20-30); Chloride 111 mmol/L (98-107); Glucose 92 mg/dL (74-106); Potassium 3.8 mmol/L (3.5-5.1); Sodium 137 mmol/L (136-145); Total Protein 4.7 g/dL (5.7-8.2)
[2024-02-21 10:37] LABS: Basophils % (manual) 0 (0.0-2.0); Blast Cells 0; Metamyelocytes % 0; Myelocytes % 0; Promyelocytes % 0
[2024-02-21 10:52] LABS: Band Neutrophils % (manual) 4; Eosinophils % (manual) 1 (0-7); Lymphocytes % (manual) 7 (10.0-50.0); Monocytes % (manual) 7 (0-12); Reactive Lymphocytes 3
[2024-02-21 10:54] LABS: Anisocytosis Slight; Platelet Estimate Adequate
[2024-02-21] MEDS: PIPERACILLIN-TAZOB 3.375GM 100 ML IV SCH (14:21)
[2024-02-21] MEDS: THROAT LOZENGES(CEPASTAT) MT PRN (23:41)
[2024-02-22] VITALS (8 sets, daily range): BP systolic 98–118; BP diastolic 49–72; PULSE 51–117; RESP 16–18; TEMP 97.4–98.7; O2SAT 91–97
[2024-02-22 06:21] LABS: Basophils # (auto) 0 10 ^3/uL (0-0.2); Basophils % (auto) 0.3 % (0.0-2.0); Eosinophils # (auto) 0.3 10 ^3/uL (0-0.8); Hemoglobin 13.5 g/dL (12.2-16.2); Lymphocytes # (auto) 1.3 10 ^3/uL (0.4-5.4); Lymphocytes % (auto) 9.7 % (10.0-50.0); Mean Corpuscular Hemoglobin 25.5 pg (28.0-32.0); Monocytes # (auto) 1.1 10 ^3/uL (0-1.3); White Blood Cell 13.3 10^3/uL (4.4-10.8)
[2024-02-22 06:25] LABS: Eosinophils % (auto) 2.5 % (0.0-7.0); Hematocrit 42.1 % (36.0-46.0); Mean Corpuscular Volume 79.8 fL (80.0-100.0); Monocytes % (auto) 8.2 % (0.0-12.0); Neutrophils # (auto) 10.5 10 ^3/uL (1.6-8.6); Neutrophils % (auto) 79.3 % (37.0-80.0); Red Blood Cells 5.28 10^6/uL (4.0-5.20); Red Cell Distribution Width 18.4 % (11.8-14.3)
[2024-02-22 06:31] LABS: Anion Gap 10 (5-15); Carbon Dioxide 19 mmol/L (20-30); Chloride 108 mmol/L (98-107); Potassium 3.3 mmol/L (3.5-5.1); Sodium 137 mmol/L (136-145)
[2024-02-22 06:32] LABS: Calcium 8.9 mg/dL (8.7-10.4)
[2024-02-22 06:36] LABS: Glucose 76 mg/dL (74-106)
[2024-02-22 06:37] LABS: BUN/Creatinine Ratio 20.3 (10.0-20.0); Blood Urea Nitrogen 15 mg/dL (9-23)
[2024-02-22] MEDS: POTASSIUM CHL 20 Meq TABLET PO ONE (11:51)
[2024-02-22] MEDS: MORPHINE SULFATE 4 MG/ML SYR/VIAL IV PRN (20:46)
[2024-02-23] VITALS (11 sets, daily range): BP systolic 93–135; BP diastolic 50–72; PULSE 42–164; RESP 18–20; TEMP 97.5–98.1; O2SAT 91–98
[2024-02-23] MEDS: dilTIAZem 25 MG/5 ML VIAL IV ONE (00:39)
[2024-02-23 09:24] LABS: Mean Corpuscular Hgb Conc. 31.9 g/dL (32.0-36.0)
[2024-02-23 09:27] LABS: Basophils # (auto) 0.1 10 ^3/uL (0-0.2); Basophils % (auto) 0.4 % (0.0-2.0); Eosinophils # (auto) 0.3 10 ^3/uL (0-0.8); Eosinophils % (auto) 2.5 % (0.0-7.0); Hematocrit 42.5 % (36.0-46.0); Hemoglobin 13.5 g/dL (12.2-16.2); Lymphocytes % (auto) 7.6 % (10.0-50.0); Mean Corpuscular Hemoglobin 25.8 pg (28.0-32.0); Mean Corpuscular Volume 80.9 fL (80.0-100.0); Monocytes # (auto) 1.1 10 ^3/uL (0-1.3); Monocytes % (auto) 8.1 % (0.0-12.0); Neutrophils # (auto) 10.7 10 ^3/uL (1.6-8.6); Neutrophils % (auto) 81.4 % (37.0-80.0); Red Blood Cells 5.25 10^6/uL (4.0-5.20); Red Cell Distribution Width 19.1 % (11.8-14.3); White Blood Cell 13.2 10^3/uL (4.4-10.8)
[2024-02-23 09:32] LABS: Chloride 109 mmol/L (98-107); Potassium 3.4 mmol/L (3.5-5.1); Sodium 136 mmol/L (136-145)
[2024-02-23 09:33] LABS: Anion Gap 8 (5-15); Carbon Dioxide 19 mmol/L (20-30)
[2024-02-23 09:39] LABS: BUN/Creatinine Ratio 15.6 (10.0-20.0); Blood Urea Nitrogen 12 mg/dL (9-23); Glucose 109 mg/dL (74-106)
[2024-02-23] MEDS: OMNIPAQUE 12mg/ml 500ml ORAL SOLUTION PO ONE (11:36)
[2024-02-23] MEDS: IOHEXOL 300 MG/ML 100ML BOTTLE IJ ONE (11:37)
[2024-02-23] MEDS: ATENOLOL 25 MG TAB PO ONE (12:14)
[2024-02-23] MEDS: POTASSIUM CHL 20 Meq TABLET PO ONE (12:15)
[2024-02-23] MEDS: ATENOLOL 25 MG TAB PO SCH (21:46)
[2024-02-24] VITALS (8 sets, daily range): BP systolic 96–114; BP diastolic 49–72; PULSE 51–95; RESP 16–18; TEMP 97.6–98.4; O2SAT 93–97
[2024-02-24 06:45] LABS: Chloride 112 mmol/L (98-107); Potassium 3.2 mmol/L (3.5-5.1); Sodium 138 mmol/L (136-145)
[2024-02-24 06:46] LABS: Anion Gap 6 (5-15); Calcium 8.5 mg/dL (8.5-10.1); Carbon Dioxide 20 mmol/L (20-30)
[2024-02-24 06:47] LABS: Basophils # (auto) 0 10 ^3/uL (0-0.2); Basophils % (auto) 0.4 % (0.0-2.0); Eosinophils # (auto) 0.4 10 ^3/uL (0-0.8); Eosinophils % (auto) 3.5 % (0.0-7.0); Hematocrit 36.9 % (36.0-46.0); Hemoglobin 11.8 g/dL (12.2-16.2); Lymphocytes % (auto) 9.1 % (10.0-50.0); Mean Corpuscular Hemoglobin 25.7 pg (28.0-32.0); Mean Corpuscular Volume 80.5 fL (80.0-100.0); Monocytes # (auto) 1.1 10 ^3/uL (0-1.3); Monocytes % (auto) 9.6 % (0.0-12.0); Neutrophils # (auto) 8.7 10 ^3/uL (1.6-8.6); Neutrophils % (auto) 77.4 % (37.0-80.0); Nucleated Red Blood Cells % 0.1 %; Red Blood Cells 4.59 10^6/uL (4.0-5.20); Red Cell Distribution Width 19.3 % (11.8-14.3); White Blood Cell 11.2 10^3/uL (4.4-10.8)
[2024-02-24 06:51] LABS: BUN/Creatinine Ratio 14.5 (10.0-20.0); Blood Urea Nitrogen 9 mg/dL (9-23); Glucose 90 mg/dL (74-106)
[2024-02-24] MEDS: Ensure HIGH Protein Chocolate 8oz Bottle PO SCH (12:48)
[2024-02-24] MEDS: POTASSIUM CHL 20 Meq TABLET PO ONE (14:24)
[2024-02-25] VITALS (8 sets, daily range): BP systolic 101–112; BP diastolic 60–76; PULSE 72–97; RESP 15–18; TEMP 97.2–98.3; O2SAT 92–96
[2024-02-25 11:40] LABS: Chloride 112 mmol/L (98-107); Potassium 3.8 mmol/L (3.5-5.1); Sodium 140 mmol/L (136-145)
[2024-02-25 11:42] LABS: Calcium 8.7 mg/dL (8.5-10.1)
[2024-02-25 11:46] LABS: Glucose 74 mg/dL (74-106)
[2024-02-25 11:47] LABS: BUN/Creatinine Ratio 9.2 (10.0-20.0); Blood Urea Nitrogen 6 mg/dL (9-23); Magnesium 1.8 mg/dL (1.6-2.6)
[2024-02-25 13:13] LABS: Anion Gap 6 (5-15); Carbon Dioxide 22 mmol/L (20-30)
[2024-02-26] VITALS (7 sets, daily range): BP systolic 99–120; BP diastolic 47–79; PULSE 55–78; RESP 16–18; TEMP 97.6–98.2; O2SAT 93–97
[2024-02-27] VITALS (8 sets, daily range): BP systolic 103–127; BP diastolic 56–80; PULSE 51–86; RESP 16–51; TEMP 97.7–98.7; O2SAT 95–99
[2024-02-28] VITALS (8 sets, daily range): BP systolic 111–124; BP diastolic 57–69; PULSE 69–94; RESP 17–22; TEMP 97.7–98.2; O2SAT 93–97
[2024-02-29] VITALS (9 sets, daily range): BP systolic 110–126; BP diastolic 56–77; PULSE 69–102; RESP 18–24; TEMP 37.2; O2SAT 92–96
[2024-02-29] MEDS ORDERED: AUG875T PO (12:12)
[2024-03-01 01:00] VITALS: BP 111/49; PULSE 94; RESP 20; TEMP 98.1; O2SAT 94
[2024-03-01] MEDS ORDERED: ACETAMINOPHEN 325 MG TAB PO PRN (01:00)
[2024-03-01 05:00] VITALS: BP 127/83; PULSE 80; RESP 18; TEMP 97.9; O2SAT 96
[2024-03-01 08:19] VITALS: BP 140/75; PULSE 78; RESP 18; TEMP 98.1; O2SAT 96
[2024-03-01 08:30] VITALS: PULSE 75; PULSE 94; RESP 16
[2024-03-01 12:52] VITALS: BP 142/90; PULSE 79; RESP 19; TEMP 97.6; O2SAT 96
== END 2024-03-01 16:34 | DRG 559 ==
LOC: ER 10:34 → EDBD 10:34 → EDUNIT# 10:34 → TELE 12:30 → TELE-WESTW 23:24
PROVIDERS: ADMIT Nurse Practitioner Family; ATTEND Internal Medicine
PROC: 05HA33Z Insertion of Infusion Device into Left Brachial Vein, Percutaneous Approach (ICD-10-PCS; principal; 2024-02-21)
PROC: B54NZZA Ultrasonography of Left Upper Extremity Veins, Guidance (ICD-10-PCS; 2024-02-21)
DX: T84.051A Periprosthetic osteolysis of internal prosthetic left hip joint, initial encounter (principal); A41.9 Sepsis, unspecified organism; N39.0 Urinary tract infection, site not specified; I50.42 Chronic combined systolic (congestive) and diastolic (congestive) heart failure; E44.1 Mild protein-calorie malnutrition; Z68.1 Body mass index [BMI] 19.9 or less, adult; T84.52XA Infection and inflammatory reaction due to internal left hip prosthesis, initial encounter; R31.9 Hematuria, unspecified; N93.8 Other specified abnormal uterine and vaginal bleeding; I48.91 Unspecified atrial fibrillation; I11.0 Hypertensive heart disease with heart failure; E03.9 Hypothyroidism, unspecified; I25.10 Atherosclerotic heart disease of native coronary artery without angina pectoris; J44.9 Chronic obstructive pulmonary disease, unspecified; N95.0 Postmenopausal bleeding; I07.1 Rheumatic tricuspid insufficiency; Z96.643 Presence of artificial hip joint, bilateral; M16.0 Bilateral primary osteoarthritis of hip; D25.9 Leiomyoma of uterus, unspecified; K21.9 Gastro-esophageal reflux disease without esophagitis; N85.2 Hypertrophy of uterus; Z95.1 Presence of aortocoronary bypass graft; Z74.01 Bed confinement status; Z88.8 Allergy status to other drugs, medicaments and biological substances; Z91.048 Other nonmedicinal substance allergy status; Z90.49 Acquired absence of other specified parts of digestive tract; Z98.61 Coronary angioplasty status; Z87.891 Personal history of nicotine dependence; Z79.02 Long term (current) use of antithrombotics/antiplatelets; Z79.51 Long term (current) use of inhaled steroids; Z79.899 Other long term (current) drug therapy; Z88.6 Allergy status to analgesic agent; Z82.49 Family history of ischemic heart disease and other diseases of the circulatory system; Z87.440 Personal history of urinary (tract) infections
CPT/HCPCS: 36415; 74177; 76856; 80048; 80053; 81001; 83735; 83880; 84100; 84443; 85007; 85014; 85018; 85025; 85027; 85610; 85730; 93005; 97110; 97116; 97163; 97530; G0378; J2405; J2543